=== PATIENT | male | born 1940 | race Caucasian/White ===

== ENCOUNTER 2016-10-07 03:03 | Inpatient (IN) | payer OTHER, MEDICARE ==
[~2016-10-07] VITALS: Ht 172.7 cm; Wt 65.8 kg
[~2016-10-07 03:03] MED LIST: ASPIRIN EC81 M1 PO; CASODEX50 M1 PO; CRESTOR20 M2 PO; FINASTERIDE5 M1 PO; FOLIC ACID1 M1 PO; METOPROLOL SUCC50 M2 PO; MIRALAX17 GM PO; PROTONIX40 M3 PO; RAMIPRIL10 M1 PO
--- NOTE | 2016-10-07 12:08 | RADIOLOGY REPORT ---
EXAMINATION: XR SHOULDER, RIGHT CLINICAL INFORMATION: Right reverse total shoulder arthroplasty COMPARISON: CT from 07/23/2016 TECHNIQUE: Single portable view of the right shoulder. FINDINGS: There is a reverse right total shoulder arthroplasty. The humeral head and glenoid components articulate appropriately. Alignment is as expected with no periprosthetic fracture. Postoperative soft tissue gas is noted. The visualized lung is clear. IMPRESSION: Reverse total right shoulder arthroplasty in expected positioning and alignment.
[2016-10-07 14:00] VITALS: BP 120/62
--- NOTE | 2016-10-07 15:11 | Event Note ---
Event Note Event Note: Rapid response was called on patient. Per RN patient had got out of bed on his own and was in the bathroom at which time she noticed him and went in to help him. While walking in patient appeared to have a syncopal episode and fell but she was able to break his fall. Patient did not hit his head or land on his shoulder per RN. Per patient he remembers getting up to bathroom but does not seem to recall the fall. He states he does not have pain in his shoulder or his head. He has some mild pain in his neck but states the pain is similar to the pain he had in his neck from shingles last week. Denies chest pain or shortness of breath. BP: 120/70's HR: 90's Exam: NAD, A&Ox3, comfortable HEENT: atraumatic, normocephalic. No lesions or abrasions. Neck: Supple. No stepoffs or deformities appreciated but does have some paraspinal tenderness bilaterally. Skin: warm, flush, mildly diaphoretic Chest: NRD, breathing comfortably on 2L NC. RRR. Abd: Soft, NT, ND Ext: Right shoulder dressing c/d/i. Right shoulder immobilizer in place. No obvious upper or lower extremity deformity. NV intact BUE. No calve swelling/ TTP. NV intact BLE. After getting patient back into bed and receiving 500ml IV bolus patient is feeling better without dizziness. EKG without evidence of acute cardiac event. Patient likely had a postoperative vasovagal episode but will r/o other causes. - c collar - neck xrays, trauma series - right shoulder series - cbc, bep, troponins - continue IVF at regular rate - patient to remain in bed until workup complete - monitor vital signs - will discuss with Dr. Nolan
--- NOTE | 2016-10-07 15:25 | NUR ---
LATE ENTRY: PATIENT ARRIVED TO FLOOR AT 1345 FROM PACU. PATIENT ALERT AND ORIENTED, HARD OF HEARING, AT BEDSIDE. PATIENT DENIES ANY PAIN ON HIS RIGHT SHOULDER, SLING IN AND PLACE AND PULSES PRESENT AND REGULAR. PATIENT ASKED TO USE THE BATRHOOM TO VOID. WALKED WITH PATIENT TO BATHROOM. PATIENT AMBULATED INDEPENDENTLY AND DENIED ANY DIZZINESS. WAITED OUTSIDE THE DOOR FOR PATIENT WHEN PATIENT CALLED FOR HELP. IN THE BATRHOOM PATIENT HANGING ON THE RAILING AND SLIDING OFF THE GARBAGE WHICH HE WAS SITTING ON. SAT PAITENT ON THE FLOOR AND RAPID RESPONSE CALLED. PATIENT PALE AND MINIMALLY RESPONSIVE. BP 90/60. IV BOLUS OF 500 MG STARTED. PATIENT BECAME MORE RESPONSIVE AND ABLE TO WALK TO BED WITH HELP. ONCE LAYING IN BED AND S/P 500 MG BOLUS, BP 128/60. PULSE 67, SATING 95% ON ROOM AIR. COLLAR PUT ON PATIENT UNTIL CT SCAN R/O ANY FRACTURES. EKG NEG. PATIENT SINUS RHYTHM. FLUIDS RUNNING AT @ 75 ML/HR.
--- NOTE | 2016-10-07 15:56 | RADIOLOGY REPORT ---
EXAMINATION: X-RAY CERVICAL SPINE AND X-RAY RIGHT SHOULDER CLINICAL INFORMATION: Status post right total shoulder. Recent fall. Evaluate for fracture COMPARISON: X-ray right shoulder dated 10/07/2016 at 11:42 AM TECHNIQUE: 3 views of the right shoulder. AP, lateral and odontoid views of the cervical spine. FINDINGS: RIGHT SHOULDER Dislocation of the recent right humerus shoulder arthroplasty. The humeral articular component is superior to the glenoid in the subacromial space. No periprosthetic acute fracture lines appreciated. Air in the soft tissues compatible with recent postoperative change. Visualized right ribs are intact. Intact right clavicle. Mineralized lungs are unremarkable. X-RAY CERVICAL SPINE There is poor visualization of the odontoid on the lateral or odontoid views. Overall alignment is within normal limits. Visualized vertebral body heights are preserved. Significant decrease in the intervertebral disc space and facet arthropathy noted at multiple levels. Multilevel uncovertebral hypertrophy. IMPRESSION: 1. Dislocated right shoulder arthroplasty. 2. No acute fractures identified. 3. Severe cervical spondylosis. 4. Limited evaluation of the odontoid process. The remaining visualized osseous structures are intact..
[2016-10-07 18:10] VITALS: BP 110/62
--- NOTE | 2016-10-07 18:30 | PN- Orthopedic ---
Surgical Brief Attending Note Brief Attending Note: Per report, patient had a fall earlier today while ambulating independently to the bathroom. He complains of posterior neck tenderness; no right shoulder pain but nerve block still effective. XR of right shoulder show dislocation of the reverse total shoulder prosthesis. Patient was brought down to the operating room and placed on monitors. No medication was administered. The right shoulder was closed reduced with manual traction in the setting of his pre-existing nerve block; the sling was reapplied and xrays were obtained to verify the reduction of the components. He complained of no pain post-reduction. He was able to flex/extend his fingers and reported burning sensation in his fingers. Diminished sensation to light touch over hand. Palpable radial pulse and warm, well-perfused fingers. Mr. Goldman was then taken to the CT scanner for imaging of his cervical spine, then returned to his room (206). He complained of mild nausea and discomfort with the C-collar. Plan: NWB RUE in sling Pain control f/u CT scan results; C-spine reassessment prior to collar removal Out of bed with assistance May eat/drink as tolerated Resume ASA 81mg BID for DVT prophylaxis; SCDs while in bed OT assessment tomorrow Dispo: pending re-evaluation tomorrow.
--- NOTE | 2016-10-07 18:36 | CT SCAN REPORT ---
EXAMINATION: CT CERVICAL SPINE WITHOUT CONTRAST CLINICAL INFORMATION: 76-year-old man with cervical spine tenderness. COMPARISON: Preceding radiographs TECHNIQUE: Helical CT images were obtained through the cervical spine without the use of intravenous contrast. Axial reconstructions were reviewed along with sagittal and coronal MPRs. DLP: 325 mGy-cm FINDINGS: There is no evidence of acute cervical spine fracture. Vertebral bodies are normal in height. Alignment is approximately anatomic. There is degenerative endplate remodeling with marginal osteophyte formation and moderate loss of normal disc space at virtually all levels, with some sparing of C2-C3. Limited assessment of the skull base and lung apices is unremarkable. No pre or paravertebral soft tissue abnormality is identified. IMPRESSION: No evidence of acute cervical spine fracture or traumatic subluxation.
--- NOTE | 2016-10-07 18:56 | NUR ---
PATIENT ARRIVED BACK TO FLOOR AT 181. VITALS STABLE. PATIENT COMPLAINING OF RIGHT SHOULDER BLADE PAIN. SURGICAL PA NOTIFIED. PER SURGICAL PA, IT IS PROBABLY FROM SURGERY SINCE PATIENT DID HAVE A RIGHT SHOULDER ATHROPLASTY. LUNGS CLEAR. PATIENT SATING 100% ON 1L. SURGICAL PA ASKED TO COME UP TO ASSESS PATIENT IN ORDER FOR COLLAR TO COME OFF AND TO ASSESS THE SHOULDER BLADE PAIN. WILL MEDICATE PATIENT. AT BEDSIDE. CALL VIEIRA WITHIN REACH.
[2016-10-07 20:17] LABS: ABSOLUTE BASOPHIL COUNT 0 /CUMM (0.0-0.2); ABSOLUTE EOSINOPHIL COUNT 0 /CUMM (0.0-0.7); ABSOLUTE GRANULOCYTE CT 8.4 /CUMM (1.4-6.5); ABSOLUTE LYMPH COUNT 0.8 /CUMM (1.2-3.4); ABSOLUTE MONOCYTE COUNT 1.2 /CUMM (0.10-0.60); BASOPHIL % 0 % (0.0-2.0); EOSINOPHIL % 0 % (0-5); GRANULOCYTE % 80.3 % (42.2-75.2); HEMATOCRIT 30.3 % (42-52); MEAN CORPUSCULAR HGB 26.4 PG (27.0-31.0); MEAN CORPUSCULAR VOLUME 79.8 FL (80.0-94.0); MEAN PLATELET VOLUME 8.5 FL (7.4-10.4); PLATELET COUNT 259 /CUMM (130-400); RBC DISTRIBUTION WIDTH 14.4 % (11.5-14.5); WHITE BLOOD CELL COUNT 10.4 /CUMM (4.8-10.8)
--- NOTE | 2016-10-07 20:30 | NUR ---
SURGICAL PA CAME TO ASSESS PATIENT AT 1900. CT SHOWED NO CERVICAL FRACTURE, PA FELT COMFORTABLE TO MOVE THE COLLAR OFF. PATIENT ABLE TO MOVE HEAD AND SHOULDERS APPROPIATELY. DENIES ANY PAIN. DAUGHTER AT BEDSIDE. PATIENT ALERT. CALL VIEIRA WITHIN REACH.
--- NOTE | 2016-10-07 21:32 | Operative Report ---
Operative/Inv Procedure Report Surgery Date: 10/07/16 Name of Procedure: Right reverse total shoulder arthroplasty Pre-Operative Diagnosis: Right rotator cuff arthropathy Post-Operative Diagnosis: Right rotator cuff arthropathy Estimated Blood Loss: 150mL Surgeon/Lathing Supervisor: FILI CHAMBERLAIN,GUME Huerta MD, Anesthesia: general endotracheal tube, block Implants: Tornier Aequalis Reverse Total Shoulder System Ascend Flex Stem - size 6 25mm Glenoid Baseplate 36mm Centered Glenoid sphere +0 centered tray +6 poly Drains: None Specimens: Bone - humeral head. Complications: None Condition: Stable Operative/Procedure Note Note: INDICATION FOR PROCEDURE: Chriss Goldman is a 76 year old male who presented with progressively worsening right shoulder pain and dysfunction. He underwent an attempted right rotator cuff repair in 02/2016 by another provider, however the cuff was deemed unrepairable and his arthritis too advanced. He did extensive physical therapy, but was unable to participate in his hobbies and activities of daily living. After discussing the risks, benefits, and alternatives to surgical intervention, he has opted to proceed with right reverse total shoulder arthroplasty for rotator cuff arthropathy. OPERATIVE REPORT: Mr. Goldman arrived at [facility] on 10/07/2016. He was met in the pre- operative area, were his operative extremity was marked and his medical history was reviewed. A nerve block was performed by the anesthesia service with good analgesia. The patient was then taken into the operative room and placed supine on the OR table. A time-out procedure was performed in which the patient, the operative extremity, and the procedure were verified. He was then induced under general anesthesia. The patient was placed in a modified beach chair position; care was taken to pad all bony prominences and support the head in a neutral position. SCDs were applied to both legs for DVT prophylaxis. The right upper extremity was prepped and draped in the usual sterile fashion and pre-operative antibiotics were administered. An incision was made in the anterior shoulder for the standard deltopectoral approach. The cephalic vein was identified and retracted laterally. The interval was divided and the superficial border of the pectoralis major tendon was released. The conjoint tendon was identified and carefully retracted medially. The clavipectoral fascia was carefully opened, and the anterior circumflex arteries were ligated. The patient had a prior biceps tendon rupture, however the groove was opened and taken proximally across the rotator interval to the glenoid. No intact supraspinatus was seen. The subscapularis tendon was intact but very thin. This was tagged with sutures. The subscapular tendon and anterior capsule was retracted medially while externally rotating the arm. The humeral head had extensive wear and peripheral osteophytes. The guide was used to determine the version and angle of the humeral head cut, which was then performed with a saw and completed free hand. Sequential reamers were placed in the canal, followed with sequential broaching up to a size 6. A planar was used to flatten the humeral cut, followed by removal of excess bone and osteophytes with a ronguer. A plate was then used to protect the proximal humerus while the glenoid was prepared. A Facuda retractor was used to retract the humerus for improved glenoid exposure. The remaining labral tissue was romoved aound the rim of the glenoid. The 10 degree guide was aligned with the bottom of the glenoid, and a threaded guide wire inserted. Two glenoid reamers were used to flatten the glenoid without medialization, and remove any remaining cartilage. The wire was then overdrilled with a central drill. The base plate was then inserted and impacted into place. The superior and inferior locking screws were placed but not fully tightened. An 18mm compression screw was placed anteriorly. A posterior compression screw was placed, however did not acheive adequate fixation. A longer screw was inserted, but again no fixation was obtained and the screw was loose in the hole. This was removed. The locking screws were tightening and the anterior screw re-tightened. The 36mm glenosphere was then impacted and screwed into placed. The humerus was then externally rotated for exposure. The cap was removed and the central dish and +6 tray were trialed. This proved to be too tight with poor motion and excessive tensioning of the surrounding tissues. The shoulder was dislocated and +0 tray was trialed with good stability and motion, and no evidence of instability. The humeral trials were then removed and the shoulder copiously irrigated. A 2.0 drill was used to place two holes in the lesser tuberosity, through which #2 Fiberwire suture was passed. These were looped around the stem as it was impacted into place with the tray and poly appropriately positioned. Once the humeral component was fully inserted, the shoulder was again reduced with good stability and motion. The Fiberwire sutures were then passed through the remaining subscapularis/anterior capsule tissue and tied down to the lesser tuberosity using a Vlad-Cristopher stitch. The wound was again copiously irrigated. There was bleeding noted from the cephalic vein, and it was ligated. The deltopectoral interval was closed with #2 Ethibond suture. The incision was closd in layers using 0 vicryl, 2-0 vicryl, and a running subcuticular 3-0 prolene with an escape stitch. The wound was dressed with steri strips, gauze, and ABD pads, and secured with foam tape. A sling was applied to the right arm. The patient was then repositioned supine on the OR table and extubated. He was taken to the recovery room in stable condition.
--- NOTE | 2016-10-07 22:15 | Operative Report ---
Operative/Inv Procedure Report Surgery Date: 10/07/16 Name of Procedure: Closed reduction of right dislocated reverse total shoulder arthroplasty Pre-Operative Diagnosis: Dislocation of right reverse total shoulder arthoplasty Post-Operative Diagnosis: Dislocation of right reverse total shoulder arthoplasty Estimated Blood Loss: 0mL Surgeon/Tax Compliance Representative: GUME PENN MD Anesthesia: none Complications: None Condition: Stable Operative/Procedure Note Note: Indication for procedure: Chriss Goldman is a 76 year old male who underwent right reverse total shoulder arthroplasty earlier today for right rotator cuff arthropathy. Post-operatively, he got up to independently ambulate to the bathroom and collapsed. He did not remember all the events surrounding this time. Xrays of the right shoulder showed dislocation of the right reverse total shoulder prosthesis. The patient was urgently chirag back to the operative room with a plan for closed reduction but possible open reduction to relocate the components. Report: Mr. Goldman was brought to the OR on 10/07/16. He was met in the pre-operative area, where the treatment options to including repeat anesthesia were discussed. The patient was agreeable to intervention. He was brought in the OR and monitors attached. The nerve block thas was administered prior to his reverse total shoulder was in in effect with good analgesia. Using countertraction and traction, the humerus was closed reduced with a palpable noise. The arm and shoulder were then take through a range of motion with good stability and motion. The arm was then returned to the sline. Xrays (AP and axillary) were used to confirm to location of the prosthesis and the reduction. The patient was then removed from the OR in stable condition.
--- NOTE | 2016-10-07 22:47 | PN- Orthopedic ---
Subjective Subjective: Postoperative check Patient is postoperative day #0 status post right total shoulder replacement, complicated by a fall postoperatively resulting in a shoulder dislocation and subsequent return to the OR for relocation under light sedation. Patient was also place a cervical collar postoperatively, which was subsequently cleared. At this time, he is resting and reports no significant complaints. He does admit to some right scapular pain and also some left shoulder pain, which is not the operative site. No significant change versus baseline in the left shoulder. He is tolerating sips of water. No nausea or vomiting. He was able to void at least 400 mL's of urine, while sitting upright at the bedside. Otherwise denies headache, dizziness, chest pain, shortness of breath. Objective Vital Signs and I&Os Vital Signs Date Time Temp Pulse Resp B/P Pulse O2 O2 Flow FiO2 Ox Delivery Rate 10/07 1810 97.5 72 18 110/62 98 Nasal 1.0L Cannula 10/07 1400 98 Nasal 1.0L Cannula 10/07 1400 97.7 81 120/62 98 Nasal 1.0L Cannula Intake & Output 10/07 1600 10/07 0800 10/07 0000 10/06 1600 10/06 0800 10/06 0000 Intake Total 25 Output Total Balance 25 Intake, Oral 25 Patient 145 lb Weight Physical Exam: Gen.: Patient is resting, but easily arousable. HEENT: Head appears atraumatic. Pupils are equal round and reactive to light and accommodation. EOMs are intact. There is point tenderness over the base of the scalp/occipital region. Active and passive range of rotational motion is comfortable to at least 45. Cardiac: Regular Pulmonary: Lungs are clear bilaterally. Extremities: The right upper extremity remains flexed at the elbow and a sling, as previously positioned. His hand is warm and sensation is intact throughout. 2+ radial pulse is noted. Hall Manager strength is 4-5. No significant lower extremity edema or calf tenderness are appreciated. Assessment/Plan Assessment/Plan Patient is a 76-year-old male who is POD #0 status post right total shoulder replacement, complicated by a fall postoperatively resulting in a shoulder dislocation and subsequent return to the OR for relocation under light sedation. He remained stable at this time. Plan: -Okay to advance diet as tolerated. Continue IV fluids until tolerating adequate by mouth. -OT consult in the morning for discharge recommendations. Patient is nonweightbearing with the right upper extremity. We will consider physical therapy consult in the morning if concerns remain for safety during mobilization. -If patient complains of neck discomfort, we will replace the cervical collar. Okay to use soft collar if more comfortable. -Continue morphine for pain control or Percocet when tolerating a diet. -81 mg twice a day for DVT prophylaxis plus Alps. -Ancef 24 hours for hepatic prophylaxis. -Home meds have been resumed, including beta randell. -Follow-up CBC and lytes in the morning. Core Measures/Miscellaneous Venous Thromboembolism VTE Risk Factors: Age > 40, Surgery VTE Contraindications: No Contraindications VTE Diagnosis: No Beta Randell Is Beta Randell a Home Med? Yes If Yes, Was This Ordered Today? Yes Antibiotics Is Patient on Antibiotics? Yes If Yes: prophylaxis
--- NOTE | 2016-10-07 23:37 | Event Note ---
See Addendum Event Note Event Note: CT scan of the cervical spine was performed, which was negative for fracture or subluxation. The c-collar was removed. Patient was still noted to have some occipital tenderness, but both active and passive range of motion were found to be pain free. Patient reported improvement in overall discomfort with removal of the collar. I discussed with Dr. Nolan, who agreed that the collar can be discontinued. I discussed with the patient that any complaints of pain with spontaneous movement should be reported, at which time ligamentous injury should be considered and a collar (Possibly soft) could be replaced. Patient is in agreement.
[2016-10-07 23:41] VITALS: BP 110/68
[2016-10-08 07:33] VITALS: BP 121/66
[2016-10-08 07:50] LABS: ABSOLUTE BASOPHIL COUNT 0 /CUMM (0.0-0.2); ABSOLUTE EOSINOPHIL COUNT 0 /CUMM (0.0-0.7); ABSOLUTE GRANULOCYTE CT 5.8 /CUMM (1.4-6.5); ABSOLUTE LYMPH COUNT 1.3 /CUMM (1.2-3.4); ABSOLUTE MONOCYTE COUNT 1.1 /CUMM (0.10-0.60); BASOPHIL % 0.2 % (0.0-2.0); EOSINOPHIL % 0 % (0-5); GRANULOCYTE % 70.9 % (42.2-75.2); HEMATOCRIT 26.3 % (42-52); MEAN CORPUSCULAR HGB 26.6 PG (27.0-31.0); MEAN CORPUSCULAR HGB CONC 33.3 G/DL (33.0-37.0); MEAN CORPUSCULAR VOLUME 79.9 FL (80.0-94.0); MEAN PLATELET VOLUME 8.5 FL (7.4-10.4); PLATELET COUNT 217 /CUMM (130-400); RBC DISTRIBUTION WIDTH 14.7 % (11.5-14.5); RED BLOOD CELL CT 3.29 /CUMM (4.70-6.10); WHITE BLOOD CELL COUNT 8.2 /CUMM (4.8-10.8)
--- NOTE | 2016-10-08 08:29 | RADIOLOGY REPORT ---
EXAMINATION: XR SHOULDER, RIGHT CLINICAL INFORMATION: Right shoulder dislocation. COMPARISON: Right shoulder done on 10/07/2016. TECHNIQUE: Two views of the right shoulder. FINDINGS: Previously dislocated stem, humeral component of the right shoulder total arthroplasty currently shows satisfactory realignment. The hardware appears intact. Multiple air pockets are identified within the adjacent soft tissues few of them shows air-fluid level consistent with recent intervention. IMPRESSION: Postsurgical changes of total right shoulder arthroplasty showing satisfactory alignment of the hardware, consistent with satisfactory reduction of previously documented dislocation.
--- NOTE | 2016-10-08 08:46 | PN- Orthopedic ---
See Addendum Subjective Subjective: Patient states that he was unable to sleep last night due to discomfort in his non-operative shoulder. He states that he has a history of left shoulder pain and feels that it has been exacerbated, he states that he was laying on it overnight. He denies chest pain, shortness of breath and difficulty breathing. He denies nausea and vomitting. He has yet to ambulate, he fell one day ago and is reluctant to stand today. Objective Vital Signs and I&Os Vital Signs Date Time Temp Pulse Resp B/P Pulse O2 O2 Flow FiO2 Ox Delivery Rate 10/08 0733 98.1 62 20 121/66 96 Room Air 10/07 2341 98.0 63 20 110/68 98 Nasal 1.0L Cannula 10/07 1810 97.5 72 18 110/62 98 Nasal 1.0L Cannula 10/07 1400 98 Nasal 1.0L Cannula 10/07 1400 97.7 81 120/62 98 Nasal 1.0L Cannula Intake & Output 10/08 1600 10/08 0800 10/08 0000 10/07 1600 10/07 0800 10/07 0000 Intake Total 600 200 25 Output Total 350 450 Balance 250 -250 25 Intake, IV 600 Intake, Oral 200 25 Output, Urine 350 450 Patient 145 lb Weight Physical Exam: General: Alert and oriented x3, no acute distress Cardiac: RRR, s1s2 Pulmonary: CTA bilaterally Abdomen: Non-tender, non-distended Extremities: MOves all extremities, distal sensation intact. Bilateral upper extremities skin warm and well perfused. Motor 5/5 in bilateral hand balance and hairspring assembler. radial and ulnar pulses palpable bilaterally. Unable to assess ROM, to left shoulder, limited by pain. Arm pressed into side at all times, no limitations distally from elbow to hand. Surgical site: Right shoulder, dressing dry and intact. Assessment/Plan Assessment/Plan This is a 76 year old male, POD 1, s/p Right total shoulder replacement. Rapid response 10/07 with dislocation of right shoulder, return to or for closed reduction. Now with c/o of worsening left shoudler pain with limited ROM due to pain. -XRAY left shoulder -D/C IV fluids -Continue current pain regimen -Advance as tolerated -OOB with assist only, PT ordered -Will discuss with Dr. Nolan Core Measures/Miscellaneous Venous Thromboembolism VTE Risk Factors: Age > 40, Surgery VTE Contraindications: No Contraindications VTE Diagnosis: No Beta Randell Is Beta Randell a Home Med? Yes If Yes, Was This Ordered Today? Yes Antibiotics Is Patient on Antibiotics? Yes If Yes: prophylaxis
--- NOTE | 2016-10-08 09:15 | NUR ---
nursing note: pt c/o nausea; zofran given per prn order, wilmar galvin made aware, cont to monitor
[2016-10-08 11:30] VITALS: BP 126/70
--- NOTE | 2016-10-08 13:23 | NUR ---
NURSING NOTE: ONE TIME OF TORADOL ORDERED BY SURG PA. PT SLEEPING AT THIS TIME, AT BEDSIDE, STATES "LET HIM SLEEP" CONT TO MONITOR.
[2016-10-08 14:07] VITALS: BP 102/48; BP 92/84
--- NOTE | 2016-10-08 17:23 | RADIOLOGY REPORT ---
EXAMINATION: XR SHOULDER, LEFT CLINICAL INFORMATION: Pain with decreased range of motion. COMPARISON: None TECHNIQUE: Three views of the left shoulder. FINDINGS: No fracture or dislocation. The left humeral head articulates appropriately with the glenoid. Mild degenerative changes are seen with small osteophytes present. Mild degenerative changes of the acromioclavicular joint. The visualized lung is clear. IMPRESSION: Mild degenerative changes.
--- NOTE | 2016-10-08 21:27 | NUR ---
ALERT AND ORIENTED X 3. VITAL SIGNS STABLE. DENIES CHEST PAIN. + PULSES SLING TO R SHOULDER. MEDICATION GIVEN FOR PAIN WILL CONTINUE TO MONITOR
[2016-10-08 22:07] VITALS: BP 104/50
[2016-10-09] VITALS (7 sets, daily range): BP systolic 84–110; BP diastolic 48–60
--- NOTE | 2016-10-09 07:37 | PN- Orthopedic ---
See Addendum Subjective Subjective: 76-year-old male postop day 2 status post right reverse total shoulder arthroplasty and subsequent traumatic dislocation on postoperative day 0 with closed reduction. Patient had a fall postop day 0 resulting in shoulder dislocation which was reduced in the OR. He also had neck pain and had a cervical spine clearance with CT scan and exam. He complains of no neck pain at this time no numbness or weakness in extremities. He has mild to moderate right shoulder pain that is controlled with pain medication. He had no acute events overnight. He states he slept well and is feeling much better today than he did yesterday. He is awaiting clearance with physical therapy. He denies any fever or flulike illness. Objective Vital Signs and I&Os Vital Signs Date Time Temp Pulse Resp B/P Pulse O2 O2 Flow FiO2 Ox Delivery Rate 10/09 0624 97.9 62 20 108/58 96 Room Air 10/08 2207 98.6 63 20 104/50 100 10/08 1407 98.4 62 20 102/48 100 Room Air 10/08 1130 68 126/70 10/08 1013 67 124/68 10/08 1011 67 124/68 10/08 0733 98.1 62 20 121/66 96 Room Air Intake & Output 10/09 0800 10/09 0000 10/08 1600 10/08 0800 10/08 0000 10/07 1600 Intake Total 150 350 850 600 200 25 Output Total 500 350 350 450 Balance 150 -150 500 250 -250 25 Intake, IV 150 600 Intake, Oral 150 350 700 200 25 Number 0 Bowel Movements Output, Urine 500 350 350 450 Patient 145 lb Weight Physical Exam: Well-developed well-nourished no apparent distress. HEENT: Atraumatic, extraocular motion intact Neck: Supple, no lymphadenopathy Back: Nontender Respiratory: No respiratory distress Right upper extremity, dressing with small amount of bloody drainage. Incision is intact, Steri-Strips intact. Moderate swelling to the anterior shoulder with ecchymosis. No erythema. Shoulder clinically is reduced. Sling is applied. Neurovascularly intact right upper extremity. Neuro: Alert and oriented x3 Psych: Mood affect normal, normal memory normal judgment. Skin: Warm and dry, no rash on exposed skin Results Last 48 Hours of Labs: Laboratory Tests 10/08 10/07 0626 1830 Chemistry Sodium (137 - 145 mmol/L) 131 L 134 L Potassium (3.5 - 5.1 mmol/L) 4.6 4.8 Chloride (98 - 107 mmol/L) 96 L 96 L Carbon Dioxide (22 - 30 mmol/L) 28 24 Anion Gap (5 - 16) 7 14 BUN (9 - 20 mg/dL) 20 21 H Creatinine (0.7 - 1.2 mg/dL) 0.8 0.8 Estimated GFR (>60 ml/min) > 60 > 60 BUN/Creatinine Ratio (7 - 25 %) 25.0 26.3 H Troponin I (<0.11 ng/ml) < 0.01 Hematology CBC w Diff NO MAN DIFF REQ NO MAN DIFF REQ WBC (4.8 - 10.8 /CUMM) 8.2 10.4 RBC (4.70 - 6.10 /CUMM) 3.29 L 3.80 L Hgb (14.0 - 18.0 G/DL) 8.7 L 10.0 L Hct (42 - 52 %) 26.3 L 30.3 L MCV (80.0 - 94.0 FL) 79.9 L 79.8 L MCH (27.0 - 31.0 PG) 26.6 L 26.4 L RDW (11.5 - 14.5 %) 14.7 H 14.4 Plt Count (130 - 400 /CUMM) 217 259 MPV (7.4 - 10.4 FL) 8.5 8.5 Gran % (42.2 - 75.2 %) 70.9 80.3 H Lymphocytes % (20.5 - 51.1 %) 15.9 L 7.7 L Monocytes % (1.7 - 9.3 %) 13.0 H 12.0 H Eosinophils % (0 - 5 %) 0 0 Basophils % (0.0 - 2.0 %) 0.2 0 L Absolute Granulocytes (1.4 - 6.5 /CUMM) 5.8 8.4 H Absolute Lymphocytes (1.2 - 3.4 /CUMM) 1.3 0.8 L Absolute Monocytes (0.10 - 0.60 /CUMM) 1.1 H 1.2 H Absolute Eosinophils (0.0 - 0.7 /CUMM) 0 0 Absolute Basophils (0.0 - 0.2 /CUMM) 0 0 PUBS MCHC (33.0 - 37.0 G/DL) 33.3 33.0 Assessment/Plan Assessment/Plan 76-year-old male postop day 2 status post right reverse total shoulder arthroplasty and subsequent traumatic dislocation on postoperative day 0 with closed reduction. -Orthopedically he is doing well, continue sling -Out of bed with physical therapy nonweightbearing right upper extremity to remain in sling -Daily dressing changes, dressing change today by myself -Aspirin 81 mg twice a day for DVT prophylaxis -Pain medication as needed -Case management consult for possible home services and home safety eval Acute blood loss anemia- follow labs this morning, patient asymptomatic. Hyponatremia-sodium recheck this morning, regular diet, IV fluids DC'd yesterday Cervical strain -Neck pain after fall resolved -Possible discharge this afternoon after evaluation with physical therapy and results of labs reviewed. Core Measures/Miscellaneous Venous Thromboembolism VTE Risk Factors: Age > 40, Surgery VTE Contraindications: No Contraindications VTE Diagnosis: No Beta Randell Is Beta Randell a Home Med? Yes If Yes, Was This Ordered Today? Yes Antibiotics Is Patient on Antibiotics? Yes If Yes: prophylaxis
--- NOTE | 2016-10-09 07:41 | Patient Discharge Instructions ---
Discharge Instructions General Discharge Information You were seen/treated for: Right shoulder osteoarthritis You had these procedures: Right shoulder reverse total shoulder arthroplasty Watch for these problems: Redness, swelling, pain, fever or discharge from the wound. Call Surgeon to remove: Stitches (in 10 days) Do not soak the wound: Yes No bath, but you may shower: Yes Other wound care: Dressing changes as needed if the dressing is bloody or wet. Use gauze and a dry dressing Special Instructions: Stay in sling at all times you may move the elbow as much as you feel comfortable. Keep your right hand between your nose and your toes Diet Continue normal diet: Yes Activity Full Activity/No Limits: No Activity Self Limited: Yes Pounds, do NOT lift more than: 0 (right arm) Activity Limited to: No weight bearing (right upper extremity) Additional ACTIVITY Info: Stain sling at all times except when bathing Acute Coronary Syndrome Inclusion Criteria At DC or during hospital stay patient has or had the following: ACS DIAGNOSIS No Discharge Core Measures Meds if any: Prescribed or Continued at Discharge Aspirin Yes Beta-Randell Yes Meds if any: NOT Prescribed or Continued at Discharge Congestive Heart Failure Inclusion Criteria At DC or during hospital stay patient has or had the following: CHF DIAGNOSIS No Discharge Core Measures Meds if any: Prescribed or Continued at Discharge Meds if any: NOT Prescribed or Continued at Discharge Cerebrovascular accident Inclusion Criteria At DC or during hospital stay patient has or had the following: CVA/TIA Diagnosis No Discharge Core Measures Meds if any: Prescribed or Continued at Discharge Meds if any: NOT Prescribed or Continued at Discharge Venous thromboembolism Inclusion Criteria VTE Diagnosis No VTE Type NONE VTE Confirmed by (Test) NONE Discharge Core Measures - Per Current guidelines, there needs to be overlap - treatment for the first 5 days of Warfarin therapy. - If discharged on Warfarin prior to 5 days of - overlap therapy, the patient will need to be - assessed for post discharge needs including - *Post discharge parental anticoagulation - *Warfarin and/or parental anticoagulation education - *Follow up date to check INR post discharge At least 5 days overlap therapy as Inpatient No Meds if any: Prescribed or Continued at Discharge Note: Overlap Therapy is Warfarin and Anticoagulant Meds if any: NOT Prescribed or Continued at Discharge
--- NOTE | 2016-10-09 07:58 | Surgical Discharge Summary ---
Visit Information Visit Dates Admission Date: 10/07/16 Discharge Date: 10/10/16 History of Present Illness Chief Complaint: Right shoulder pain secondary to rotator cuff arthropathy Medical History Blood Transfusion Hx: No Cardiovascular: CAD, hypertension Renal: KIDNEY STONES Musculoskeletal: osteoarthritis Cancer(s): PROSTATE CANCER History of MRSA: No History of VRE: No History of CDIFF: No Isolation History: Standard Influenza Vaccine: 06/11/16 Surgical History Pertinent Surgical History: STENT TONSILITIS Psychosocial History Where Do You Live? Home Who Do You Live With? Spouse What is Your Primary Language? Azeri Review of Systems: see hpi Physical Exam: See H&P Upon discharge right shoulder dressing was clean and dry, moderate swelling to the right shoulder, neurovascularly intact. Hospital Course Course Attending Physician: GUME NOLAN MD Primary Care Physician: RYLEE CHAMBERLAIN,[facility] Course: Patient was admitted on 10/07 2016 for a reverse right total shoulder arthroplasty. The procedure went without complications the patient was transferred to the floor. On postoperative day 0, patient got up without assistance to go to the bathroom, had a vasovagal episode, and fell to the ground. He dislocated the right shoulder in the fall. He had an EKG and labs which show mild hyponatremia and acute blood loss anemia. He also had a CT scan of his neck after being placed in a cervical spine collar because he had neck pain after the fall. His C-spine was cleared shortly after. On POD0, he was brought back to the OR and underwent closed reduction of the right shoulder. He did not require additional sedation as his perioperative nerve block was still in effect. On postop day 2 patient felt significantly better. His pain is controlled he is remained in a sling, he was evaluated by physical therapy and cleared. He initially had orthostatic hypotension, but this improved with time. He received 24hrs of prophylactic IV antibiotics follow surgery and aspirin 81mg BID for DVT prophylaxis. He'll be discharged home with VNA services to follow up in approximately 10 days ' time with orthopedist Dr. Nolan Complications: Postoperative fall with shoulder dislocation and subsequent closed reduction in the operating room postop day 0. Hyponatremia Acute blood loss anemia Allergies: Uncoded Allergies: LEAFY GREENS (GI UPSET 09/29/16) Significant Procedures: Right reverse total shoulder arthroplasty. Subsequent closed reduction in the operating room of the right shoulder. Disposition Summary Disposition Principal Diagnosis: Right shoulder osteoarthritis status post right reverse total shoulder arthroplasty Additional Diagnosis: Hyponatremia, acute blood loss anemia, fall, cervical strain Discharge Disposition: home health services Discharge Instructions General Discharge Information Code Status: Full Code Patient's Diet: Regular Patient's Activity: Self-limiting, Ultrasling at all time to right upper extremity, nonweightbearing right upper extremity Follow-Up Instructions/Appts: Follow-up with Dr. Nolan 10 days for wound check and postoperative visit. Stay in ultrasling at all times except when bathing Dressing changes as needed if there went or bloody Do not submerge the wound, you may shower, change the dressings when they are wet. Pain medication as needed Aspirin 81 mg twice a day for DVT prophylaxis [id number]-[id number] stool softeners, Colace, senna, MiraLAX as needed for constipation due to pain medication Watch for any signs of infection such as redness, excessive discharge from the wound, worsening pain, fever greater than 101, worsening swelling of the arm or flulike illness. Call orthopedist with any concerns. Medications at Discharge Discharge Medications: Stop taking the following medications: Aspirin (Ecotrin*) 81 MG TABLET.DR ORAL DAILY Continue taking these medications: Bicalutamide (Casodex) 50 MG TABLET 1 Tablet ORAL DAILY Comments: NOT GIVEN WHILE HOSPITALIZED Finasteride (Finasteride) 5 MG TABLET 1 Tablet ORAL DAILY Comments: LAST DOSE GIVEN 10/10/16 AT 10:00 AM Folic Acid (Folic Acid) 1 MG TABLET 1 Tablet ORAL DAILY Comments: NOT GIVEN WHILE HOSPITALIZED Metoprolol Succinate (Metoprolol Succinate) 50 MG TAB.ER.24H 1 Tablet ORAL DAILY Comments: LAST DOSE GIVEN 10/08/16 AT 10:00 AM Pantoprazole Sodium (Protonix) 40 MG TABLET.DR 1 Tablet ORAL DAILY Comments: LAST DSOE GIVEN 10/10/16 @ 10:00 AM VIA I.V Ramipril (Ramipril) 10 MG CAPSULE 1 Capsule ORAL DAILY Comments: NOT GIVEN WHILE HOSPITALIZED Rosuvastatin Calcium (Crestor) 20 MG TABLET 1 Tablet ORAL DAILY Comments: LIPITOR GIVEN SUBSTITUTE, LAST DOSE 10/09/16 AT 5:00 PM Start taking the following new medications: Aspirin (Aspirin*) 81 MG TAB.CHEW 81 Milligram ORAL TWICE DAILY Qty = 60 No Refills Comments: LAST DOSE GIVEN 10/10/16 AT 10:00 AM Docusate Sodium (Docusate Sodium) 100 MG CAPSULE 100 Milligram ORAL TWICE DAILY as needed for constipation Qty = 30 No Refills Comments: LAST DOSE GIVEN 10/10/16 AT 10:00 AM Oxycodone HCl/Acetaminophen (Percocet 5-325 MG Tablet) 5 MG-325 MG TABLET 1-2 Tablet ORAL EVERY 4 HOURS NEEDED as needed for PAIN SCALE 1-3 (MILD) Qty = 36 No Refills Comments: LAST DOSE GIVEN 10/10/16 AT 6:00 AM Attending MD Review Statement Attending Statement Attending MD Statement: examined this patient, agreed w/resident/PA/[employer]ILD[employer] DES[employer] SPECIALIST, discussed with family, amended to note
[2016-10-09] MEDS ORDERED: PERCOCET 5-3251 EACH PO (08:02)
[2016-10-09] MEDS ORDERED: ASPIRIN81 M4 PO (08:02)
[2016-10-09] MEDS ORDERED: DOCUSATE SODIU100 M3 PO (08:02)
[2016-10-09 08:39] LABS: ABSOLUTE BASOPHIL COUNT 0 /CUMM (0.0-0.2); ABSOLUTE EOSINOPHIL COUNT 0 /CUMM (0.0-0.7); ABSOLUTE GRANULOCYTE CT 5.7 /CUMM (1.4-6.5); ABSOLUTE LYMPH COUNT 2.1 /CUMM (1.2-3.4); BASOPHIL % 0.3 % (0.0-2.0); EOSINOPHIL % 0.6 % (0-5); GRANULOCYTE % 63.9 % (42.2-75.2); HEMATOCRIT 25.4 % (42-52); MEAN CORPUSCULAR HGB 26.5 PG (27.0-31.0); MEAN CORPUSCULAR HGB CONC 32.9 G/DL (33.0-37.0); MEAN CORPUSCULAR VOLUME 80.5 FL (80.0-94.0); MEAN PLATELET VOLUME 8.7 FL (7.4-10.4); PLATELET COUNT 225 /CUMM (130-400); RBC DISTRIBUTION WIDTH 14.9 % (11.5-14.5); RED BLOOD CELL CT 3.15 /CUMM (4.70-6.10); WHITE BLOOD CELL COUNT 8.9 /CUMM (4.8-10.8)
--- NOTE | 2016-10-09 10:40 | NUR ---
NURSING NOTE: PT SITTING IN CHAIR. C/O "A LITTLE LIGHTHEADED" BP 84/48. HR 60, PT ASSISTED BACK TO BED, BED ALARM IN PLACE AND WORKING, BP LYING WAS 102/60, HR 64. PT STATES "I FEEL BETTER" LISA LOPEZ 416 MADE AWARE, CONT TO MONITOR. NO FURTEHR ORDERS AT THIS TIME.
--- NOTE | 2016-10-09 11:00 | Cons- Medical ---
General Information and HPI Consulting Request Date of Consult: 10/09/16 Requested By: GUME PENN MD Reason for Consult: Hypotension Anemia Hyponatremia PRABHJOT Source of Information: patient, family, old records Exam Limitations: clinical condition History of Present Illness: Mr Goldman is a 76-year-old gentleman with a PMH of CAD s/p stent placement 2 ( 2010), stage I diastolic dysfunction (echocardiogram 2014, LVEF>65%), BPH, prostate CA s/p radiation therapy completed last year, diverticulosis, right rotator cuff arthropathy with unsuccessful prior attempts of repair (02/2016) and admitted on 10/07/2016 when he underwent reverse total shoulder arthroplasty. Unfortunately on postop day 0 the patient had a syncopal episode while urinating resulting in a fall to the ground. Cervical CT: Dislocation of the right shoulder arthroplasty. No acute fractures were identified. Severe cervical spondylosis. Limited evaluation of the odontoid process. The patient was taken back to the OR and underwent a closed reduction of right dislocated reverse total shoulder arthroplasty. At this time the patient reports mild nausea, mild abdominal bloating, chills. He denies any dizziness, blurred vision, headache, difficulty breathing, chest pain, palpitations, numbness or severe pain in his upper extremity. Allergies/Medications Allergies: Uncoded Allergies: LEAFY GREENS (GI UPSET 09/29/16) Home Med List: Aspirin (Ecotrin*) 81 MG TABLET.DR 1 TAB PO DAILY PROPHO (Reported) Aspirin (Aspirin*) 81 MG TAB.CHEW 81 MG PO BID dvt Bicalutamide (Casodex) 50 MG TABLET 1 TAB PO DAILY CANCER (Reported) Docusate Sodium 100 MG CAPSULE 100 MG PO BID PRN constipation Finasteride 5 MG TABLET 1 TAB PO DAILY PROSTATE (Reported) Folic Acid 1 MG TABLET 1 TAB PO DAILY PROPHO (Reported) Metoprolol Succinate 50 MG TAB.ER.24H 1 TAB PO DAILY HTN (Reported) Oxycodone HCl/Acetaminophen (Percocet 5-325 MG Tablet) 5 MG-325 MG TABLET 1-2 TAB PO Q4P PRN PAIN SCALE 1-3 (MILD) Pantoprazole Sodium (Protonix) 40 MG TABLET.DR 1 TAB PO DAILY GERD (Reported) Ramipril 10 MG CAPSULE 1 CAP PO DAILY HTN (Reported) Rosuvastatin Calcium (Crestor) 20 MG TABLET 1 TAB PO DAILY CHOLESTEROL ( Reported) Current Medications: Current Medications Sig/Trinh Start time Last Medication Dose Route Stop Time Status Admin Aspirin 81 MG BID 10/08 1000 AC 10/09 PO 1042 Atorvastatin Calcium 80 MG 1700 10/07 1700 AC 10/08 PO 1748 Docusate Sodium 100 MG DAILY 10/08 1000 AC 10/09 PO 1043 Finasteride 5 MG DAILY 10/08 1000 AC 10/09 PO 1044 Ketorolac 15 MG Q8P PRN 10/08 1715 DC Tromethamine IV Ketorolac 30 MG .STK-MED ONE 10/08 1336 DC Tromethamine IM 10/08 1337 Ketorolac 15 MG ONCE ONE 10/08 1315 DC 10/08 Tromethamine IV 10/08 1316 1350 Lisinopril 40 MG DAILY 10/08 1000 AC 10/08 PO 1011 Melatonin 5 MG AT BEDTIME PRN 10/08 0015 AC 10/08 PO 0025 Metoprolol Succinate 50 MG DAILY 10/08 1000 AC 10/08 PO 1013 Morphine Sulfate 2 MG Q3P PRN 10/07 1345 DC 10/08 IV 0736 Ondansetron HCl 4 MG Q8P PRN 10/07 1345 AC 10/08 IV 0914 Oxycodone/ 1 TAB Q4P PRN 10/07 1345 AC 10/09 Acetaminophen PO 0632 Oxycodone/ 2 TAB Q4P PRN 10/07 1345 AC Acetaminophen PO Pantoprazole Sodium 40 MG DAILY 10/08 1000 AC 10/09 IV 1059 Polyethylene Glycol 17 GM DAILY 10/09 1000 AC 10/09 PO 1044 Sodium Chloride 1,000 ML BOLUS ONE 10/09 1100 DC 10/09 IV 10/09 1159 1122 Review of Systems Review of Systems Constitutional: Reports: see HPI. EENTM: Reports: no symptoms. Cardiovascular: Reports: no symptoms. Respiratory: Reports: no symptoms. GI: Reports: see HPI. Genitourinary: Reports: no symptoms. Musculoskeletal: Reports: see HPI. Neurological/Psychological: Reports: no symptoms. Past History Medical History Blood Transfusion Hx: No Cardiovascular: CAD, hypertension Renal: KIDNEY STONES Musculoskeletal: osteoarthritis Cancer(s): PROSTATE CANCER Surgical History Surgical History: STENT TONSILITIS Psychosocial History Where Do You Live? Home Smoking Status: Former Smoker Functional Ability ADLs Independent: dressing, eating, toileting, bathing. Ambulation: independent IADLs Independent: shopping, housework, finances, food prep, telephone, transportation , medication admin. Exam & Diagnostic Data Last 24 Hrs of Vital Signs/I&O Vital Signs Date Time Temp Pulse Resp B/P Pulse O2 O2 Flow FiO2 Ox Delivery Rate 10/09 1250 97.9 62 18 110/58 100 Room Air 10/09 1040 64 102/60 10/09 1035 61 84/48 10/09 0811 64 108/64 10/09 0811 62 108/60 10/09 0624 97.9 62 20 108/58 96 Room Air 10/08 2207 98.6 63 20 104/50 100 10/08 1407 98.4 62 20 102/48 100 Room Air Intake & Output 10/09 1600 10/09 0800 10/09 0000 Intake Total 1000 150 350 Output Total 600 500 Balance 400 150 -150 Intake, IV 1000 Intake, Oral 150 350 Output, Urine 600 500 Physical Exam General Appearance: alert, comfortable, patient is easily arousable, slightly lethargic Head: atraumatic, normal appearance, conjunctiva are normal in color Eyes: Bilateral: normal appearance, EOMI. Ears, Nose, Throat: moist mucus membranes Respiratory: no respiratory distress, quiet respiration, lungs clear Cardiovascular: regular rate/rhythm, late systolic murmur, most prominent in the tricuspid region Gastrointestinal: normal bowel sounds, soft, non-tender, very mild abdominal distention Extremities: normal capillary refill, normal range of motion, no edema Last 24 Hrs of Labs/Moustapha: Laboratory Tests 10/09/16 0635: Anion Gap 9, Estimated GFR 59 L, BUN/Creatinine Ratio 30.0 H, Cortisol AM Sample Pending, CBC w Diff NO MAN DIFF REQ, RBC 3.15 L, MCV 80.5, MCH 26.5 L, RDW 14.9 H, MPV 8.7, Gran % 63.9, Lymphocytes % 23.7, Monocytes % 11.5 H, Eosinophils % 0.6, Basophils % 0.3, Absolute Granulocytes 5.7, Absolute Lymphocytes 2.1, Absolute Monocytes 1.0 H, Absolute Eosinophils 0, Absolute Basophils 0, PUBS MCHC 32.9 L Diagnostic Data EKG Results Sinus rhythm, HR 66 bpm, NM interval 172. QTC 449 Assessment/Plan Assessment/Plan 76-year-old gentleman with a PMH of CAD s/p stent placement 2 (2010), stage I diastolic dysfunction (echocardiogram 2014, LVEF>65%), BPH, prostate CA s/p radiation therapy completed last year, diverticulosis, right rotator cuff arthropathy with unsuccessful prior attempts of repair (02/2016) and admitted on 10/07/2016 when he underwent reverse total shoulder arthroplasty. Unfortunately on postop day 0 the patient had a syncopal episode while urinating resulting in a fall to the ground. VS admission: 120/62, HR 81, RR 18, SPO2 98% on RA, T 97.7 Pertinent labs on admission: WBC 10.4, H&H 10.0/30.3, platelets 259, sodium 134, potassium 4.8, chloride 96, bicarbonate 24, anion gap 14, BUN/CR 21/0.8, troponin<0.01 Problem list: 1. Reverse total shoulder arthroplasty 2. Syncopal episode 3. Hypotension 4. Orthostatic hypotension 5. Anemia 6. Hyponatremia 7. Acute kidney injury Recommendations: 1. Reverse total shoulder arthroplasty * Stable from surgical stand point 2. Syncopal episode * Positive orthostatics. We'll repeat orthostatics s/p fluid resuscitation * Continue fall precautions * PT evaluation once stable from surgical standpoint 3. Hypotension with positive orthostatics * Likely multifactorial: Anesthetic + analgesic side effects * Patient did receive 1 dose of metoprolol succinate 50 mg yesterday. Would recommend holding this medication and starting off at half dose * Patient reports baseline blood pressure of 120s/70s 4. Iron deficiency Anemia * Serum iron 27L, TIBC 324, percent saturation 8L * Follow stool guaiac. Noticeable rising BUN that could be attribute it to a BI bleed (less likely) * If worsening pain/drop in H&H, consider CT of chest/right upper extremity to assess for hematoma * Recommend starting the patient on ferrous sulfate 325 mg BID 5. Hyponatremia * Follow-up urine lytes, assess FeNa despite fluid resuscitation * The patient is immune suppressed in setting of previous radiation therapy. Follow-up a.m. cortisol to assess for any evidence of adrenal insufficiency. If low, stress dose with Solu-Cortef * Normal saline for fluid resuscitation 6. Acute kidney injury * Patient was able to self void over 600 mL of urine with a post void bladder scan showing low residuals of 50 mL. Obstructive uropathy in the setting of recent anesthetic can thus be ruled out * In the setting of hypotension, Likely a prerenal etiology is likely. Repeat renal function in the morning after hydration * Monitor for fluid overload: Echocardiogram 2014 showed stage I diastolic dysfunction with LVEF> 65% 7. Constipation * Bowel regimen with MiraLAX, senna and Colace Problem List: 1. Status post total shoulder arthroplasty 2. Episode of syncope 3. Hypotension 4. Orthostatic hypotension 5. Anemia 6. Hyponatremia 7. PRABHJOT (acute kidney injury) Consult Acknowledgment - Thank you for your consult request.
--- NOTE | 2016-10-09 13:06 | NUR ---
NURSING NOTE: BP RECHECK S/P 1000ML NS BOLUS; 110/58, HR 62, TEMP 97.9, RR 18, ROOM AIR 100%. PT AMBULATED TO BR WITH CANE AND SUPERVISION DENIES LIGHTHEADEDNESS. PT VOIDED 600ML CLEAR YELLOW URINE, BLADDER SCAN AFTER FOR 58ML/62ML/75ML. WILL SEND URINE SAMPLES PER MD ORDER. AL MOD #188 MADE AWARE OF ABOVE. CONT TO MONITOR.
--- NOTE | 2016-10-09 13:13 | PN- Att Addend ---
Attending Addendum Attending Brief Note Asked to see pleasant 76-year-old white male who had right shoulder surgery and did well after that he had a mechanical fall and had a dislocation which was treated. Since then patient has been a little hypotensive with no signs of any shock. Patient is alert and oriented. His little hypernatremic and also his hemoglobin and hematocrit dropped without any obvious signs of bleeding. We'll keep close observation monitor his H&H and electrolytes, gentle hydration. And his H&H keeps dropping need to workup to find if there is any BLEEDING, which echo sized to us for local block 24 TOTALS 10/09 0000 10/08 0000 Intake Total 1800 225 Output Total 1200 450 Balance 600 -225 Intake, IV 750 Intake, Oral 1050 225 Number 0 Bowel Movements Output, Urine 1200 450 Patient 145 lb Weight Current Medications Sig/Trinh Start time Last Medication Dose Route Stop Time Status Admin Aspirin 81 MG BID 10/08 1000 AC 10/09 PO 1042 Atorvastatin Calcium 80 MG 1700 10/07 1700 AC 10/08 PO 1748 Docusate Sodium 100 MG DAILY 10/08 1000 AC 10/09 PO 1043 Finasteride 5 MG DAILY 10/08 1000 AC 10/09 PO 1044 Ketorolac 15 MG Q8P PRN 10/08 1715 DC Tromethamine IV Ketorolac 30 MG .STK-MED ONE 10/08 1336 DC Tromethamine IM 10/08 1337 Ketorolac 15 MG ONCE ONE 10/08 1315 DC 10/08 Tromethamine IV 10/08 1316 1350 Lisinopril 40 MG DAILY 10/08 1000 AC 10/08 PO 1011 Melatonin 5 MG AT BEDTIME PRN 10/08 0015 AC 10/08 PO 0025 Metoprolol Succinate 50 MG DAILY 10/08 1000 AC 10/08 PO 1013 Morphine Sulfate 2 MG Q3P PRN 10/07 1345 DC 10/08 IV 0736 Ondansetron HCl 4 MG Q8P PRN 10/07 1345 AC 10/08 IV 0914 Oxycodone/ 1 TAB Q4P PRN 10/07 1345 AC 10/09 Acetaminophen PO 0632 Oxycodone/ 2 TAB Q4P PRN 10/07 1345 AC Acetaminophen PO Pantoprazole Sodium 40 MG DAILY 10/08 1000 AC 10/09 IV 1059 Polyethylene Glycol 17 GM DAILY 10/09 1000 AC 10/09 PO 1044 Sodium Chloride 1,000 ML BOLUS ONE 10/09 1100 DC 10/09 IV 10/09 1159 1122 Laboratory Tests 10/09/16 0635: Anion Gap 9, Estimated GFR 59 L, BUN/Creatinine Ratio 30.0 H, CBC w Diff NO MAN DIFF REQ, RBC 3.15 L, MCV 80.5, MCH 26.5 L, RDW 14.9 H, MPV 8.7, Gran % 63.9, Lymphocytes % 23.7, Monocytes % 11.5 H, Eosinophils % 0.6, Basophils % 0.3, Absolute Granulocytes 5.7, Absolute Lymphocytes 2.1, Absolute Monocytes 1.0 H, Absolute Eosinophils 0, Absolute Basophils 0, PUBS MCHC 32.9 L 10/08/16 0626: Anion Gap 7, Estimated GFR > 60, BUN/Creatinine Ratio 25.0, CBC w Diff NO MAN DIFF REQ, RBC 3.29 L, MCV 79.9 L, MCH 26.6 L, RDW 14.7 H, MPV 8.5, Gran % 70.9, Lymphocytes % 15.9 L, Monocytes % 13.0 H, Eosinophils % 0, Basophils % 0.2, Absolute Granulocytes 5.8, Absolute Lymphocytes 1.3, Absolute Monocytes 1.1 H, Absolute Eosinophils 0, Absolute Basophils 0, PUBS MCHC 33.3 10/07/16 1830: Anion Gap 14, Estimated GFR > 60, BUN/Creatinine Ratio 26.3 H, Iron Pending, TIBC Pending, % Saturation Pending, Ferritin Pending, Troponin I < 0.01, CBC w Diff NO MAN DIFF REQ, RBC 3.80 L, MCV 79.8 L, MCH 26.4 L, RDW 14.4, MPV 8.5, Gran % 80.3 H, Lymphocytes % 7.7 L, Monocytes % 12.0 H, Eosinophils % 0, Basophils % 0 L, Absolute Granulocytes 8.4 H, Absolute Lymphocytes 0.8 L, Absolute Monocytes 1.2 H, Absolute Eosinophils 0, Absolute Basophils 0, PUBS MCHC 33.0
--- NOTE | 2016-10-09 14:00 | NUR ---
NURSING NOTE: PT WOKE UP FROM DEEP SLEEP PER ; ASKED TO GO TO BR, PT ASSITED TO BR, VOIDED 400ML. STATES PT WOKE UP CONFUSED, PT REORIENTED AT THIS TIME. LISA LOPEZ AWARE.
[2016-10-10 06:31] VITALS: BP 112/60
--- NOTE | 2016-10-10 07:43 | PN- Orthopedic ---
See Addendum Subjective Subjective: Patient reports less discomfort in left shoulder, surgical shoulder still with some pain but pain has been managed well. He states that he is having some left sided flank pain. He denies chest pain, shortness of breath and difficulty breathing. He denies nausea and vomitting. He has been able to void and does not report any hematuria Objective Vital Signs and I&Os Vital Signs Date Time Temp Pulse Resp B/P Pulse O2 O2 Flow FiO2 Ox Delivery Rate 10/10 630 98.3 75 20 112/60 96 10/09 2252 99.5 75 18 108/54 95 Room Air 10/09 1415 97.8 66 20 110/56 99 Room Air 10/09 1250 97.9 62 18 110/58 100 Room Air 10/09 1040 64 102/60 10/09 1035 61 84/48 10/09 0811 64 108/64 10/09 0811 62 108/60 Intake & Output 10/10 0800 10/10 0000 10/09 1600 10/09 0800 10/09 0000 10/08 1600 Intake Total 785 989 5032 150 350 850 Output Total 557 217 1764 500 350 Balance -180 420 -50 150 -150 500 Intake, IV 1000 150 Intake, Oral 120 720 550 150 350 700 Number 0 0 Bowel Movements Output, Urine 232 221 2408 500 350 Physical Exam: General: Alert and oriented x3, no acute distress Cardiac: RRR, s1s2 Pulmonary: CTA bilaterally Abdomen: Non-tender, non-distended : Left sided CVA tenderness Extremities: Moves all extremities, distal sensations intact. Motor 5/5 in bilateral hand bulk station agent. Skin warm and well perfused. Radial/ulnar pulses palpable. Bilateral calves soft and non-tender Surgical site: Right shoulder, dressing dry and intact Assessment/Plan Assessment/Plan This is a 76 year old male, POD 3, s/p reverse tsr right. pmh includes: cad and htn. Had rr with fall and dislocation of right shoulder pod 0, was close reduced in or. Had yoan on POD 2, creatinine elevated from 0.8 to 1.2. -F/U labs this am, recheck creatinine -Stat UA, assess for hematuria -Consider KUB xray vs renal ultrasound dep on flank pain and creatinine level -Will discuss with Dr Nolan, consider urology consult -OOB, nwb to right shoulder -Continue diet as tolerated -Continue pain regimen as tolerated -Continue asa bid for dvt ppx -Discharge to home pending labs/flank pain resolution Core Measures/Miscellaneous Venous Thromboembolism VTE Risk Factors: Age > 40, Surgery VTE Contraindications: No Contraindications VTE Diagnosis: No Beta Randell Is Beta Randell a Home Med? Yes If Yes, Was This Ordered Today? Yes Antibiotics Is Patient on Antibiotics? Yes If Yes: prophylaxis
--- NOTE | 2016-10-10 08:38 | PN- Orthopedic ---
Subjective Subjective: patient doing well s/p right reverse total shoulder comfortable this am ambulating in room neuro intact Objective Vital Signs and I&Os Vital Signs Date Time Temp Pulse Resp B/P Pulse O2 O2 Flow FiO2 Ox Delivery Rate 10/10 630 98.3 75 20 112/60 96 10/09 2252 99.5 75 18 108/54 95 Room Air 10/09 1415 97.8 66 20 110/56 99 Room Air 10/09 1250 97.9 62 18 110/58 100 Room Air 10/09 1040 64 102/60 10/09 1035 61 84/48 Intake & Output 10/10 1600 10/10 0800 10/10 0000 10/09 1600 10/09 0800 10/09 0000 Intake Total 480 849 7767 150 350 Output Total 962 614 4037 500 Balance -180 420 -50 150 -150 Intake, IV 1000 Intake, Oral 120 720 550 150 350 Number 0 Bowel Movements Output, Urine 285 937 3081 500 Physical Exam: patients dressing clean dry neuro intact in sling. Assessment/Plan Assessment/Plan doing well s/p right reverse shoulder ready for dc to home Core Measures/Miscellaneous Venous Thromboembolism VTE Risk Factors: Age > 40, Surgery VTE Contraindications: No Contraindications VTE Diagnosis: No Beta Randell Is Beta Randell a Home Med? Yes If Yes, Was This Ordered Today? Yes Antibiotics Is Patient on Antibiotics? Yes If Yes: prophylaxis Attending MD Review Statement Attending Statement Attending MD Statement: examined this patient
[2016-10-10 09:25] LABS: ABSOLUTE BASOPHIL COUNT 0 /CUMM (0.0-0.2); ABSOLUTE EOSINOPHIL COUNT 0.1 /CUMM (0.0-0.7); ABSOLUTE GRANULOCYTE CT 5.3 /CUMM (1.4-6.5); ABSOLUTE LYMPH COUNT 1.8 /CUMM (1.2-3.4); ABSOLUTE MONOCYTE COUNT 0.7 /CUMM (0.10-0.60); BASOPHIL % 0.3 % (0.0-2.0); EOSINOPHIL % 0.9 % (0-5); HEMATOCRIT 24.3 % (42-52); MEAN CORPUSCULAR HGB 26.6 PG (27.0-31.0); MEAN CORPUSCULAR HGB CONC 33.3 G/DL (33.0-37.0); MEAN CORPUSCULAR VOLUME 79.9 FL (80.0-94.0); MEAN PLATELET VOLUME 8.8 FL (7.4-10.4); PLATELET COUNT 221 /CUMM (130-400); RBC DISTRIBUTION WIDTH 15.1 % (11.5-14.5); RED BLOOD CELL CT 3.04 /CUMM (4.70-6.10)
[2016-10-10 09:27] VITALS: BP 100/62
== END 2016-10-10 12:10 | disposition home health service (06) | DRG 483 ==
LOC: ENRESERVDT → ENRESERVTM → 2NB 03:03 → ENPENDDIS 03:03 → SDA 03:03 → 2NB 13:35
PROVIDERS: Nurse Practitioner; Physician Assistant Surgical; ADMIT Orthopaedic Surgery Sports Medicine
DX: M19.011 Primary osteoarthritis, right shoulder (principal); E11.9 Type 2 diabetes mellitus without complications; M06.9 Rheumatoid arthritis, unspecified; I10 Essential (primary) hypertension; T84.028A Dislocation of other internal joint prosthesis, initial encounter; I25.10 Atherosclerotic heart disease of native coronary artery without angina pectoris; M10.9 Gout, unspecified; W18.30XA Fall on same level, unspecified, initial encounter; Y93.9 Activity, unspecified; Y92.231 Patient bathroom in hospital as the place of occurrence of the external cause; E78.5 Hyperlipidemia, unspecified; N40.0 Benign prostatic hyperplasia without lower urinary tract symptoms; Z85.46 Personal history of malignant neoplasm of prostate; Z96.611 Presence of right artificial shoulder joint
CPT/HCPCS: 2NBP; 84133; 84300; 36415; 72050; 73030-LT; 73030-RT; 81003; 82436; 82570; 87086; 88304; 93005; 93010; 97110-GO; 97116-GO; 97162-GP; 97165-GO; 97530-GO; J0690; J1885; J2405; J3370; J3490; J7042; J7060

== ENCOUNTER 2017-11-14 08:45 | Emergency (ER) | payer OTHER, MEDICARE ==
[~2017-11-14] VITALS: Ht 172.7 cm; Wt 64.4 kg
[~2017-11-14 08:45] MED LIST changes: +ASPIRIN81 M4 PO; +DOCUSATE SODIU100 M3 PO; +METOPROLOL TART25 M1 PO; +PERCOCET 5-3251 EACH PO
--- NOTE | 2017-11-14 09:16 | ED HAND/WRIST INJURY COMPLAINT ---
History of Present Illness General Chief Complaint: Hand or Wrist Injury Stated Complaint: L WRIST INJURY Source: patient, old records Exam Limitations: no limitations Vital Signs & Intake/Output Vital Signs & Intake/Output Vital Signs Date Time Temp Pulse Resp B/P B/P Pulse O2 O2 Flow FiO2 Mean Ox Delivery Rate 11/14 1032 97.8 67 15 127/67 99 Room Air Room Air 11/14 0850 98.2 70 18 134/72 98 Room Air Allergies Uncoded Allergies: LEAFY [place]ENS (GI UPSET 09/29/16) Reconcile Medications Aspirin (Ecotrin*) 81 MG TABLET.DR 2 TAB PO DAILY CARDIAC (Reported) Bicalutamide (Casodex) 50 MG TABLET 3 TAB PO DAILY CANCER (Reported) Folic Acid 1 MG TABLET 3 TAB PO DAILY CARDIAC (Reported) Hydrocodone/Acetaminophen (Damar 5-325 Tablet) 5 MG-325 MG TABLET 1-2 TAB PO Q4-6 PRN PRN severe pain Ibuprofen 600 MG TABLET 1 TAB PO TID pain with food Metoprolol Tartrate 25 MG TABLET 1 TAB PO BID HTN (Reported) Ramipril 10 MG CAPSULE 1 CAP PO DAILY HTN (Reported) Rosuvastatin Calcium (Crestor) 20 MG TABLET 1 TAB PO DAILY CHOLESTEROL ( Reported) Triage Note: 77 YO MALE TO TRIAGE C/O PAIN TO R HAND/WRIST SINCE YESTERDAY, STATES HE WAS USING A DRILL YESTERDAY AND IT JERKED HIS R HAND. NOTED WITH SWELLING ADN REDNESS WITH STREAKING GOING UP INNER R FOREARM. PT ABLE TO MOVE EXTREMITY. HAS BEEN ICING WITHOUT RELIEF. Triage Nurses Notes Reviewed? yes Occurred: yesterday Duration: hour(s):, constant, continues in ED Timing: recent history Injury Environment: home Severity: moderate, severe Pain/Injury Location: Right: Wrist. Context: drill kick back Method of Injury: twisted Modifying Factors: Improves With: cold therapy, immobilization, rest. Worsens With: movement. Associated Symptoms: swelling, redness, GCS 15 since, stiffness HPI: 15 hours prior to admission patient was drilling a hole in the floor and the drill kicked back twice causing his right wrist to be twisted. He complains of pain swelling limited range of motion especially at the radial aspect of his wrist with redness. He denies fever chills nausea vomiting diarrhea abdominal pain chest pain shortness breath headache dysuria bleeding. He is right-hand dominant Past History Travel History Traveled to [place] past 21 day No Medical History Any Pertinent Medical History? see below for history Cardiovascular: CAD, hypertension Renal: KIDNEY STONES Musculoskeletal: osteoarthritis Cancer(s): PROSTATE CANCER History of MRSA: No History of VRE: No History of CDIFF: No Influenza Vaccine: 06/11/16 Surgical History Surgical History: STENT TONSILITIS Psychosocial History Who do you live with Spouse What is your primary language Yi Tobacco Use: Never used Family History Hx Contributory? No Review of Systems Review of Systems Constitutional: Reports: no symptoms. EENTM: Reports: no symptoms. Respiratory: Reports: no symptoms. Cardiovascular: Reports: no symptoms. GI: Reports: no symptoms. Genitourinary: Reports: no symptoms. Musculoskeletal: Reports: see HPI, joint pain, joint swelling. Skin: Reports: no symptoms. Neurological/Psychological: Reports: no symptoms. Hematologic/Endocrine: Reports: no symptoms. Immunologic/Allergic: Reports: no symptoms. All Other Systems: Reviewed and Negative Physical Exam Physical Exam General Appearance: well developed/nourished, alert, awake, anxious, mild distress Head: atraumatic, normal appearance Eyes: Bilateral: normal appearance, PERRL, EOMI. Ears, Nose, Throat: normal pharynx, normal ENT inspection, hearing grossly normal Neck: normal inspection, supple, full range of motion Cardiovascular/Respiratory: normal breath sounds, normal peripheral pulses, regular rate/rhythm, no respiratory distress Back: normal inspection, normal range of motion Shoulder Left: normal range of motion, normal inspection Shoulder Right: normal range of motion, normal inspection Elbow Left: normal range of motion, normal inspection Elbow Right: normal range of motion, normal inspection Forearm Left: normal range of motion, normal inspection Forearm Right: normal range of motion, normal inspection Wrist Left: normal range of motion, normal inspection Wrist Right: swelling, tenderness, bone tenderness, evidence of injury, pain, soft tissue tenderness, limited range of motion Hand Left: normal inspection, normal range of motion Hand Right: normal inspection, normal range of motion Reflexes: 2+: bicep (R), bicep (L). Neurologic/Tendon: normal sensation, normal motor functions, normal tendon functions Skin: intact, normal color, warm/dry, rash (erythema over the distal radiu) Lymphatic: no anterior cervical analisa Progress Differential Diagnosis: contusion, dislocation, fracture, sprain Plan of Care: Orders Procedure Date/time Status Durable Medical Equipment 11/14 09 Active Diagnostic Imaging: Viewed by Me: Radiology Read. Discussed w/RAD: Radiology Read. Radiology Impression: 1. Right wrist: Nondisplaced intra-articular fracture of the radial styloid. 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 Moderate degenerative changes of the triscaphe and severe degenerative changes of the first CMC joints. 2. Right hand: Pfkz-re-eirthuba degenerative changes of multiple joints. No evidence of additional injury. Departure Departure Disposition: HOME OR SELF CARE Condition: Stable Clinical Impression Primary Impression: Right wrist fracture Referrals: Erika CHAMBERLAIN,Rasheed Flowers Call for orthopedic follow up Seun Capps MD (PCP/Family) Departure Forms: Customer Survey General Discharge Information Prescriptions: Current Visit Scripts Hydrocodone/Acetaminophen (Damar 5-325 Tablet) 1-2 TAB PO Q4-6 PRN PRN severe pain #15 TAB Ibuprofen 1 TAB PO TID #30 TAB with food
--- NOTE | 2017-11-14 10:22 | RADIOLOGY REPORT ---
EXAMINATION: XR WRIST, RIGHT XR HAND, RIGHT CLINICAL INFORMATION: Right wrist/hand redness/swelling. Evaluate for fracture. Patient reports an injury this morning, Drill accident. COMPARISON: None TECHNIQUE: PA, oblique, lateral, and scaphoid views of the right wrist are obtained. PA, oblique, and lateral views of the right hand are obtained. FINDINGS: RIGHT WRIST: There is osteopenia. There is an oblique intra-articular fracture through the radial styloid with no significant displacement. There is chondrocalcinosis in the radiocarpal compartment. There are moderate degenerative changes of the triscaphe joint. There are severe degenerative changes of the first CMC joint. RIGHT HAND: There is osteopenia. There is an old healed angulated fracture of the distal fifth metacarpal. There is zyhp-ay-soemxhay degenerative arthritic changes of many of the IP joints of the right hand, most prominent at the DIP joints. IMPRESSION: 1. Right wrist: Nondisplaced intra-articular fracture of the radial styloid. 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 Moderate degenerative changes of the triscaphe and severe degenerative changes of the first CMC joints. 2. Right hand: Mnpf-bg-rzhhogew degenerative changes of multiple joints. No evidence of additional injury.
[2017-11-14] MEDS ORDERED: NORCO 5-325 TA1 EACH PO (10:27)
[2017-11-14] MEDS ORDERED: IBUPROFEN600 M1 PO (10:27)
[2017-11-14 10:32] VITALS: BP 127/67
== END 2017-11-14 10:33 ==
LOC: ERH 08:45
DX: S52.511A Displaced fracture of right radial styloid process, initial encounter for closed fracture (principal); X58.XXXA Exposure to other specified factors, initial encounter; Y92.9 Unspecified place or not applicable; Y93.9 Activity, unspecified
CPT/HCPCS: 73110-RT; 73130-RT

== ENCOUNTER 2018-01-12 14:23 | Emergency (ER) | payer OTHER, MEDICARE ==
[~2018-01-12] VITALS: Ht 172.7 cm; Wt 65.8 kg
[~2018-01-12 14:23] MED LIST changes: +IBUPROFEN600 M1 PO; +NORCO 5-325 TA1 EACH PO
[2018-01-12 14:30] VITALS: BP 119/70
--- NOTE | 2018-01-12 15:07 | RADIOLOGY REPORT ---
EXAMINATION: XR SHOULDER, RIGHT CLINICAL INFORMATION: Right shoulder pain after fall COMPARISON: 10/07/2016 TECHNIQUE: Three views of the right shoulder. FINDINGS: There is a periprosthetic fracture around the proximal humeral components of the reverse total shoulder arthroplasty with apex lateral angulation at the fracture site. No additional fractures are identified. Alignment of the glenoid component appears unchanged. Ibfu-ln-obaaihac acromioclavicular cellulitis. Bones are osteopenic. IMPRESSION: Angulated proximal humeral periprosthetic fracture
--- NOTE | 2018-01-12 15:21 | ED UPPER/LOWER EXTREMITY COMPL ---
See Addendum History of Present Illness General Chief Complaint: Upper Extremity Problem Stated Complaint: R SHOULDER PAIN THATS RADIATING TO WRIST Source: patient Exam Limitations: no limitations Vital Signs & Intake/Output Vital Signs & Intake/Output Vital Signs Date Time Temp Pulse Resp B/P B/P Pulse O2 O2 Flow FiO2 Mean Ox Delivery Rate 01/12 1430 98.3 69 20 119/70 96 Room Air Allergies Uncoded Allergies: LEAFY GREENS (GI UPSET 09/29/16) Reconcile Medications Aspirin (Ecotrin*) 81 MG TABLET.DR 2 TAB PO DAILY CARDIAC (Reported) Bicalutamide (Casodex) 50 MG TABLET 3 TAB PO DAILY CANCER (Reported) Folic Acid 1 MG TABLET 3 TAB PO DAILY CARDIAC (Reported) Hydrocodone/Acetaminophen ([place] 5-325 Tablet) 5 MG-325 MG TABLET 1-2 TAB PO Q4-6 PRN PRN severe pain Ibuprofen 600 MG TABLET 1 TAB PO TID pain with food Metoprolol Tartrate 25 MG TABLET 1 TAB PO BID HTN (Reported) Ramipril 10 MG CAPSULE 1 CAP PO DAILY HTN (Reported) Rosuvastatin Calcium (Crestor) 20 MG TABLET 1 TAB PO DAILY CHOLESTEROL ( Reported) Triage Note: RIGHT SHOULDER REPLACEMENT FEW MONTHS AGO THEN FELL ON IT AND SCHEDULED TO HAVE REPLACED AGAIN. FROM SHOULDER TO WRIST NOW IT'S SWELLING WHICH IS NEW. PT HAS BEEN ICING IT BUT IT HASN'T HELPED. TAKING PAIN PILLS WITHOUT RELIEF Triage Nurses Notes Reviewed? yes Onset: Abrupt Duration: day(s): Timing: recent history Severity: moderate, severe Pain/Injury Location: Right: Shoulder. No Modifying Factors: none HPI: 77-year-old male comes into the emergency room for further evaluation of right arm pain. Patient reports that he fell 3 days ago. He has a previous right shoulder replacement. He went to see his orthopedic doctor and has a fracture around the prosthesis of the right humerus. He has had increased swelling which is why he comes into the emergency room for further evaluation today. He is due to get surgery this upcoming Wednesday. (Woody Carbajal) Past History Travel History Traveled to [place] past 21 day No Medical History Any Pertinent Medical History? see below for history Cardiovascular: CAD, hypertension Renal: KIDNEY STONES Musculoskeletal: osteoarthritis Cancer(s): PROSTATE CANCER History of MRSA: No History of VRE: No History of CDIFF: No Surgical History Surgical History: STENT TONSILITIS Psychosocial History Who do you live with Spouse What is your primary language Divehi Tobacco Use: Quit >30 days ago ETOH Use: occasional use Illicit Drug Use: denies illicit drug use Family History Hx Contributory? No (Woody Carbajal) Review of Systems Review of Systems Constitutional: Reports: no symptoms. EENTM: Reports: no symptoms. Respiratory: Reports: no symptoms. Cardiovascular: Reports: no symptoms. Gastrointestinal/Abdominal: Reports: no symptoms. Genitourinary: Reports: no symptoms. Musculoskeletal: Reports: see HPI. Skin: Reports: no symptoms. Neurological/Psychological: Reports: no symptoms. Hematologic/Endocrine: Reports: no symptoms. Immunological: Reports: no symptoms. All Other Systems: Reviewed and Negative (Woody Carbajal) Physical Exam Physical Exam General Appearance: well developed/nourished, mild distress Head: atraumatic Eyes: Bilateral: normal appearance. Ears, Nose, Throat: normal ENT inspection, hearing grossly normal Neck: normal inspection Cardiovascular/Respiratory: no respiratory distress Back: normal inspection Shoulder Right: ecchymosis, soft tissue tenderness, limited range of motion Elbow Right: joint effusion, soft tissue tenderness, limited range of motion Hand Right: Radial pulse 2+, joint effusion to right elbow, swelling to right forearm, ecchymosis, Neurologic/Tendon: normal sensation, normal motor functions, normal tendon functions, responds to pain, no evidence tendon injury, no pulse deficit Skin: intact, normal color, warm/dry (Woody Carbajal) Progress Differential Diagnosis: contusion, dislocation, DVT, fracture, sprain, tendon injury Plan of Care: 01/12/2018 3:44:51 PM Patient clinically looks well. Ultrasound is currently not here today. Patient was given a slip for an outpatient ultrasound tomorrow. I expalined to him I have a low suspicion for DVT and I feel it's more swelling from the fracture however it should be excluded. He has no pulmonary or cardiac symptoms. He will follow up tomorrow. Diagnostic Imaging: Viewed by Me: Radiology Read. Discussed w/RAD: Radiology Read. Radiology Impression: PATIENT: FORTUNATO PADILLA PRESENT AGE: 77 PATIENT ACCOUNT NO: [id number] : 38 LOCATION: [facility] [place] ORDERING PHYSICIAN: Gt LOPEZ SERVICE DATE: 01/12/181 EXAM TYPE: RAD - XRY-SHOULDER COMPLETE-RIGHT EXAMINATION: XR SHOULDER, RIGHT CLINICAL INFORMATION: Right shoulder pain after fall COMPARISON: 10/07/2016 TECHNIQUE: Three views of the right shoulder. FINDINGS: There is a periprosthetic fracture around the proximal humeral components of the reverse total shoulder arthroplasty with apex lateral angulation at the fracture site. No additional fractures are identified. Alignment of the glenoid component appears unchanged. Dweg-gj-rlupkjpm acromioclavicular cellulitis. Bones are osteopenic. IMPRESSION: Angulated proximal humeral periprosthetic fracture DICTATED BY: Joseph Santos MD DATE/TIME DICTATED:01/12/181502 RN TRAINING:TRAVON DATE/TIME TRANSCRIBED:01/12/181502 CONFIDENTIAL, DO NOT COPY WITHOUT APPROPRIATE AUTHORIZATION. <Electronically signed in Other Vendor System> SIGNED BY: Joseph Santos MD 01/12/18 [id number] (Woody Carbajal) Departure Departure Disposition: HOME OR SELF CARE Condition: Stable Clinical Impression Primary Impression: Closed fracture of right proximal humerus Referrals: Seun Capps MD (PCP/Family) Additional Instructions: Continue to take her pain medication at home. Return if any other concerns worsening symptoms. Follow up for outpatient ultrasound tomorrow. Please go over all results of today's visit with your primary care doctor. Contact your primary care doctor to let them know you were here in the emergency room. There may be nonspecific findings which may not be related to your visit today here in the emergency room but may require further evaluation and chronic monitoring by your primary care doctor. If you had a laceration today the chance of foreign body always remains. You should follow-up with your primary care doctor for recheck in 3-5 days for a wound check. If you had an x-ray done there is a chance that a fracture could have been missed on initial read and you should follow-up with your primary care doctor for repeat x-rays if symptoms persist. If your blood pressure was elevated here in the emergency room please have rechecked by medical center hospital primary care doctor within the next 48. If you were prescribed a narcotic here in the emergency room or any type of controlled substances you're not allowed to drive while taking this medication or operate any type of heavy machinery. Narcotics can make you feel lightheaded dizziness nausea and can cause constipation. You may need to poultry picking machine tender a stool softener. Thank you for choosing [facility] emergency room. Please return to the emergency room immediately if you have any other concerns worsening of symptoms. Departure Forms: Customer Survey General Discharge Information (Woody Carbajal) PA/FELT COVERER Co-Sign Statement Statement: ED Attending supervision documentation- [] I saw and evaluated the patient. I have also reviewed all the pertinent lab results and diagnostic results. I agree with the findings and the plan of care as documented in the PA's/FELT COVERER's documentation. [X] I have reviewed the ED Record and agree with the PA's/FELT COVERER's documentation. [] Additions or exceptions (if any) to the PAs/FELT COVERER's note and plan are summarized below: [] (Steven CHAMBERLAIN,Tomás Del Rio)
== END 2018-01-12 15:23 ==
LOC: ERH 14:23
DX: S42.201A Unspecified fracture of upper end of right humerus, initial encounter for closed fracture (principal); W19.XXXA Unspecified fall, initial encounter; Y92.9 Unspecified place or not applicable; Y93.9 Activity, unspecified
CPT/HCPCS: 73030-RT

== ENCOUNTER 2018-01-19 07:00 | Inpatient (IN) | payer OTHER, MEDICARE ==
[~2018-01-19] VITALS: Ht 172.7 cm; Wt 66.7 kg
[2018-02-04] MEDS ORDERED: OS-CAL 500+D31 EAC1 PO (14:20)
[2018-02-04] MEDS ORDERED: COQ-10100 MG (16:07)
[2018-02-04] MEDS ORDERED: MAGNESIUM500 M2 PO (16:07)
[2018-02-04] MEDS ORDERED: OMEGA 3-6-9 11200 MG PO (16:08)
[2018-02-04] MEDS ORDERED: LIDODERM1 EACH TOP (16:08)
[2018-02-04] MEDS ORDERED: SELENIUM200 MC1 (16:10)
[2018-02-04] MEDS ORDERED: PANTOPRAZOLE SO40 M1 PO (16:10)
[2018-02-04] MEDS ORDERED: TRAMADOL HCL50 M1 PO (16:11)
--- NOTE | 2018-02-11 09:14 | Patient Discharge Instructions ---
Discharge Instructions General Discharge Information You were seen/treated for: Periprosthetic fracture of reverse total shoulder arthroplasty. You had these procedures: Surgery Date: 02/11/18 Name of Procedure: Revision right reverse total shoulder arthroplasty with polyethylene exchange Watch for these problems: fever>101.3, increased pain, redness/swelling/drainage, dizziness, shortness of breath, chest pains No bath, but you may shower: Yes Other wound care: continue dressing to right shoulder for 2-3 days; patient may remove at home and cover incision with dry gauze. He may shower and get the incision wet after 5 days; pat dry and re-dress after bathing (no soaking in a pool or tub for 2wks). Special Instructions: NWB RUE in sling; may wear sling alone, does not need abduction pillow May work on distal motion of right arm (elbow, wrist, and hand flexion/extension ) but no active shoulder motion. NO external rotation of the right shoulder. ok to resume Xarelto POD#1 per Vascular surgery recommendations. Diet Continue normal diet: Yes Recommended Diet: Regular Activity Full Activity/No Limits: No Activity Self Limited: No Pounds, do NOT lift more than: 0 Activity Limited to: No weight bearing Other activity limits: keep arm in sling as directed Acute Coronary Syndrome Inclusion Criteria At DC or during hospital stay patient has or had the following: ACS DIAGNOSIS No Discharge Core Measures Meds if any: Prescribed or Continued at Discharge Meds if any: NOT Prescribed or Continued at Discharge Congestive Heart Failure Inclusion Criteria At DC or during hospital stay patient has or had the following: CHF DIAGNOSIS No Discharge Core Measures Meds if any: Prescribed or Continued at Discharge Meds if any: NOT Prescribed or Continued at Discharge Cerebrovascular accident Inclusion Criteria At DC or during hospital stay patient has or had the following: CVA/TIA Diagnosis No Discharge Core Measures Meds if any: Prescribed or Continued at Discharge Meds if any: NOT Prescribed or Continued at Discharge Venous thromboembolism Inclusion Criteria VTE Diagnosis No VTE Type NONE VTE Confirmed by (Test) NONE Discharge Core Measures - Per Current guidelines, there needs to be overlap - treatment for the first 5 days of Warfarin therapy. - If discharged on Warfarin prior to 5 days of - overlap therapy, the patient will need to be - assessed for post discharge needs including - *Post discharge parental anticoagulation - *Warfarin and/or parental anticoagulation education - *Follow up date to check INR post discharge At least 5 days overlap therapy as Inpatient No Meds if any: Prescribed or Continued at Discharge Note: Overlap Therapy is Warfarin and Anticoagulant Meds if any: NOT Prescribed or Continued at Discharge
--- NOTE | 2018-02-11 09:16 | Admission Core Measures ---
Acute Coronary Syndrome (CM) ACS Core Measures Acute Coronary Syndrome Diagnosis No Congestive Heart Failure (NEW) CHF Core Measures Congestive Heart Failure Diagnosis No Cerebrovascular Accident CVA Core Measures CVA/TIA Diagnosis No Venous Thromboembolism VTE Core Ebony (View Protocol) VTE Risk Factors Surgery No Mechanical VTE Prophylaxis d/t N/A MechProphylax Ordered No VTE Pharm Prophylaxis d/t NA PharmProphylax ordered Problem List As ranked by this Provider includes Assessment & Plan 1. Status post total shoulder arthroplasty 2. 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 HOME MEDS Home Med List Aspirin (Ecotrin*) 81 MG TABLET.DR 2 TAB PO DAILY CARDIAC (Reported) Bicalutamide (Casodex) 50 MG TABLET 3 TAB PO DAILY CANCER (Reported) Calcium Carbonate/Vitamin D3 (Os-Dannie 500+D3 Caplet) 500 MG-200 TABLET 1 TAB PO D SUPPLEMENT (Reported) Fish Oil/Borage/Flax/Om3,6,9#1 ([place] 3-6-9 1,200 MG Softgel) 1,200 MG CAPSULE 1 CAP PO DAILY SUPPLEMENT (Reported) Folic Acid 1 MG TABLET 3 TAB PO DAILY CARDIAC (Reported) Hydrocodone/Acetaminophen ([place] 5-325 Tablet) 5 MG-325 MG TABLET 1-2 TAB PO Q4-6 PRN PRN severe pain Lidocaine (Lidoderm) 5 % ADH..PATCH 1 PAT TOP DAILY PAIN (Reported) Magnesium Oxide (Magnesium) 500 MG CAPSULE 1 CAP PO BID SUPPLEMENT (Reported) Metoprolol Tartrate 25 MG TABLET 1 TAB PO BID HTN (Reported) Pantoprazole Sodium 40 MG TABLET.DR 1 TAB PO DAILY GI (Reported) Ramipril 10 MG CAPSULE 1 CAP PO DAILY HTN (Reported) Rosuvastatin Calcium (Crestor) 20 MG TABLET 1 TAB PO DAILY CHOLESTEROL ( Reported) Tramadol HCl 50 MG TABLET 1 TAB PO TIDPRN PAIN (Reported)
--- NOTE | 2018-02-11 09:17 | Surg Short-stay <48hrs Dis Sum ---
Visit Information Visit Dates Admission Date: 02/11/18 Discharge Date: 02/13/18 Surgical Short Stay DC Summary Admission Diagnosis: Periprosthetic fracture of reverse total shoulder arthroplasty Final Diagnosis: Periprosthetic fracture of reverse total shoulder arthroplasty; stable prosthesis Procedure(s): Surgery Date: 02/11/18 Name of Procedure: Revision right reverse total shoulder arthroplasty with polyethylene exchange Summary/Significant Findings: Electively scheduled revision right reverse total shoulder arthroplasty with polyethylene exchange 02/11/18 by , for history of periprosthetic fracture of reverse total shoulder arthroplasty. The prosthesis was found to be stable in the OR, he was placed in sling, with ice therapy continued post-operatively. He was admitted to telemetry post-operatively for continuous monitoring, due to his chronic co- morbidities. His PCP, , was consulted for co-management. Pain control transitioned from iv to oral medication as able. Condition at Discharge: stable Discharge Disposition: home or self care Discharge instructions provided to patient/family: Yes Post discharge follow-up plan: follow up with in 10 days NWB RUE in sling Pain control; recommned tylenol, tramadol Resume Xarelto POD#1 per Vascular surgery Continue dressing to right shoulder for 2-3 days; patient may remove at home and cover incision with dry gauze. He may shower and get the incision wet after 5 days; pat dry and re-dress after bathing (no soaking in a pool or tub for 2wks) Copies to: Jefry CHAMBERLAIN,Seun
--- NOTE | 2018-02-11 10:59 | Operative Report ---
Operative/Inv Procedure Report Surgery Date: 02/11/18 Name of Procedure: Revision right reverse total shoulder arthroplasty with polyethylene exchange Pre-Operative Diagnosis: Periprosthetic fracture of reverse total shoulder arthroplasty. Post-Operative Diagnosis: Periprosthetic fracture of reverse total shoulder arthroplasty; stable prosthesis Estimated Blood Loss: 100mL Surgeon/Astro Technician: Ovidio CHAMBERLAIN,Ximena Huerta MD, Lynnette Felton Anesthesia: general endotracheal tube, block IV Fluids: 1000mL Implants: [place]orn[place] 36mm +9 retentive polyethylene Urine Output: 150mL Drains: None Specimens: None Complications: None Condition: Stable Operative Indication: Chriss Goldman is a 77-year old gentlemen who underwent right reverse total shoulder arthroplasty in September 2016. His post-op course was complicated by a fall on POD#0, resulting in a dislocation of the prosthesis. He was closed reduced the same day, and progressed well over the following months in regard to shoulder motion, strength, and overall function. On January 09, 2018, he had a fall in his backyard onto the right shoulder, resulting in a periprosthetic fracture. He also developed a brachial vein DVT in the right arm and was started on Xarelto. He was evaluated by cardiology, vascular surgery, and his PCP, Dr. Capps, prior to surgery. Following medical optimization, he opted to proceed with right revision total shoulder arthroplasty. Given the patient's ongoing cardiac evaluation, his natural resources extension educator, Dr. Gama, has recommended postop evaluation on telemetry following surgery. Per discussion with Dr. Capps, he will be admitted to Dr. Capps following surgery for medical management. Operative/Procedure Note Note: Chriss Goldman arrived at [facility] on 02/11/18. He was met in the pre- operative area, where his medical history was reviewed and the operative extremity was marked. A regional block was performed by the anesthesia service. He was then taken to the OR and placed supine on the OR table. A timeout was performed in which the patient, operative extremity, and play procedure were verified. SCDs were applied to bilateral lower extremities. The patient was then induced under general anesthesia, and IV cefazolin was administered for antibiotic prophylaxis. The patient was then repositioned in a modified beachchair. Care was taken to pad all bony prominences and support the head in a neutral position. The right upper extremity was prepped and draped in the usual sterile fashion, and supported by an articulated arm radford. Following a surgical pause, an incision was made through the prior scar of his previous surgery. The deltopectoral approach was taken through skin and subcutaneous tissues down to the interval between the deltoid and pectoralis major tendon. This was carefully opened. Significant scar was encountered in this region, however it was carefully dissected to reveal the plane between the conjoined tendon in the anterior humerus. A self retraining retractor was placed. The scar overlying the anterior humerus was identified and the subscapularis tendon, which was affixed to bone, was identified and carefully dissected. The humeral prosthesis was examined. There was evidence of bony healing around the humeral stem, and palpable deformity from the patient's fracture. The stent was not noted to be loose. Fluoroscopy was brought into the room and the humerus and humeral component evaluated under live fluoroscopy. Stem was noted to be in fixed position and did not move. The humeral stem appeared to have healed in valgus, and was no longer unstable. The shoulder was easily dislocated. The humerus was again reevaluated in the dislocated position and the humeral component noted to be stable. The stem was not easily I was unable to remove the stem from its position within the humeral bone. The stem appeared to have subsided slightly due to the fracture. Given this finding, the polyethylene liner was removed from the tray. Larger thicker polyethylene trays were then trialed, with improved stability using a larger and retentive polyethylene liner. The shoulder was copiously irrigated with a pulse lavage with normal saline with bacitracin. The larger retentive polyethylene was then placed and impacted into position. Fluoroscopy was again used to verify the position of the new polyethylene, the stability of the fracture, and the range of motion of the shoulder. It was noted to be in a stable position and the fracture did not move. During motion of the arm, there was no evidence of impingement or subluxation. The wound was again copiously irrigated with normal saline with bacitracin. The subscapularis tendon was repaired to the anterior humerus using #2 Ortho cord suture. The deltopectoral interval was then closed using #2 Ortho cord interrupted sutures. The wound was then closed in layers using 0 Vicryl, 2-0 Vicryl, and a running 3- 0 Prolene stitch. The wound was reinforced with Steri-Strips and dressed with sterile gauze, ABD pad, and foam tape. The patient was placed in a sling. He was then repositioned on the operating room table and extubated. The patient was taken from the operating room to the postanesthesia care unit in stable condition. Plan for admission overnight for monitoring on telemetry.
--- NOTE | 2018-02-11 12:10 | RADIOLOGY REPORT ---
EXAMINATION: Intraoperative fluoroscopy CLINICAL INFORMATION: Right shoulder ORIF COMPARISON: Right shoulder radiographs 01/12/2018 TECHNIQUE: Intraoperative fluoroscopy was provided for use by Dr. Nolan. A total of 4 images were saved to PACS. Radiologist was not present during imaging. TOTAL FLUOROSCOPIC TIME: 1.4 minutes FINDINGS\E\IMPRESSION: Intraoperative fluoroscopy provided for use by Dr. Nolan. Please see operative note for detailed findings.
[2018-02-11 13:30] VITALS: BP 132/70
--- NOTE | 2018-02-11 13:52 | History & Physical ---
General Information and HPI MD Statement: I have seen and personally examined FORTUNATO PADILLA and documented this H&P. The patient is a 77 year old M who presented with a patient stated chief complaint of [shoulder pain]. Source of Information: patient, family Exam Limitations: no limitations History of Present Illness: Mr. Padilla is a 77 y/o gentleman with PMH significant for CAD s/p stent placement(1999), Prostate cancer s/p radiation therapy, and nephrolithiasis who was admitted for revision of his shoulder. He underwent right reverse total shoulder arthroplasty in September 2016. Patient had a fall on January 09, 2018, when he fell on the right shoulder while watering his plants resulting in a periprosthetic fracture. He denied any chest pain, palpitations,lightheadedness/ dizziness, loss of consciousness or hitting his head at the time of fall. He also developed a brachial vein DVT in the right arm and was started on Xarelto. He had Revision of the right reverse total shoulder arthroplasty done earlier today, which the patient tolerated well, but with his history of heart disease was decided to monitor him on telemetry overnight. Allergies/Medications Allergies: Coded Allergies: No Known Allergies (02/04/18) Home Med list Aspirin (Ecotrin*) 81 MG TABLET.DR 2 TAB PO DAILY CARDIAC (Reported) Bicalutamide (Casodex) 50 MG TABLET 3 TAB PO DAILY CANCER (Reported) Calcium Carbonate/Vitamin D3 (Os-Dannie 500+D3 Caplet) 500 MG-200 TABLET 1 TAB PO D SUPPLEMENT (Reported) Fish Oil/Borage/Flax/Om3,6,9#1 ([place] 3-6-9 1,200 MG Softgel) 1,200 MG CAPSULE 1 CAP PO DAILY SUPPLEMENT (Reported) Folic Acid 1 MG TABLET 3 TAB PO DAILY CARDIAC (Reported) Hydrocodone/Acetaminophen ([place] 5-325 Tablet) 5 MG-325 MG TABLET 1-2 TAB PO Q4-6 PRN PRN severe pain Lidocaine (Lidoderm) 5 % ADH..PATCH 1 PAT TOP DAILY PAIN (Reported) may wear up to 12 hours Magnesium Oxide (Magnesium) 500 MG CAPSULE 1 CAP PO BID SUPPLEMENT (Reported) Metoprolol Tartrate 25 MG TABLET 1 TAB PO BID HTN (Reported) Pantoprazole Sodium 40 MG TABLET.DR 1 TAB PO DAILY GI (Reported) Ramipril 10 MG CAPSULE 1 CAP PO DAILY HTN (Reported) Rosuvastatin Calcium (Crestor) 20 MG TABLET 1 TAB PO DAILY CHOLESTEROL ( Reported) Selenomethionine (Selenium) 200 MCG TABLET SUPPLEMENT (Reported) Tramadol HCl 50 MG TABLET 1 TAB PO TIDPRN PAIN (Reported) Ubidecarenone (Coq-10) 100 MG CAPSULE 2 CAP SUPPLEMENT (Reported) Past History Medical History Cardiovascular: CAD, hypertension Renal: KIDNEY STONES Musculoskeletal: osteoarthritis Cancer(s): PROSTATE CANCER History of MRSA: No History of VRE: No History of CDIFF: No Surgical History Surgical History: STENT TONSILITIS Past Family/Social History Psychosocial History Where do you live? Home Who Do You Live With? spouse Smoking Status: Former Smoker (quit 54 yrs ago) ETOH Use: occasional use Illicit Drug Use: denies illicit drug use Functional Ability ADLs Independent: dressing, eating, toileting, bathing. Ambulation: independent IADLs Independent: shopping, housework, finances, food prep, telephone, transportation , medication admin. Review of Systems Review of Systems Constitutional: Reports: no symptoms. EENTM: Reports: no symptoms. Cardiovascular: Reports: no symptoms. Respiratory: Reports: no symptoms. GI: Reports: no symptoms. Genitourinary: Reports: no symptoms. Musculoskeletal: Reports: joint pain. Skin: Reports: no symptoms. Neurological/Psychological: Reports: no symptoms. Hematologic/Endocrine: Reports: no symptoms. Immunologic/Allergic: Reports: no symptoms. All Other Systems: Reviewed and Negative Exam & Diagnostic Data Last 24 Hrs of Vital Signs/I&O Vital Signs Date Time Temp Pulse Resp B/P B/P Pulse O2 O2 Flow FiO2 Mean Ox Delivery Rate 02/11 1330 98.2 72 18 132/70 98 Room Air Intake & Output 02/11 1600 02/11 0800 08 0000 Intake Total 300 Output Total Balance 300 Intake, Oral 300 Patient 143 lb Weight Weight Bed scale Measurement Method Physical Exam General Appearance Alert, Oriented X3, Cooperative Skin No Rashes, No Breakdown HEENT Atraumatic, PERRLA, EOMI, Mucous Membr. moist/pink Cardiovascular Regular Rate, Normal S1, Normal S2 Lungs Normal Air Movement Abdomen Normal Bowel Sounds, Soft, No Tenderness Extremities No Clubbing, No Cyanosis Assessment/Plan Assessment: Mr. Padilla is a 77 y/o gentleman with PMH significant for CAD s/p stent placement(1999), Prostate cancer s/p radiation therapy, and nephrolithiasis who was admitted for revision of his shoulder. Problem List; 1. Right reverse total shoulder arthroplasty 2. Recent Brachial vein DVT 3. Hx of CAD s/p stents 4. Hx of prostate Ca. - Admit the patient to Telemetry floor - Right shoulder arthroplasty, managment per surgery. - Pain managment - Resume Xarelto tomorrow per surgery - Continue cardiac home medications except aspirin while on xarelto - Continue Becalutamide. DVT Prophylaxis; ALPS only, resume Xarelto in am. Patient is full code. As Ranked By This Provider Problem List: 1. Status post total shoulder arthroplasty Core Measures/Misc (03/28) Acute Coronary Syndrome ACS Diagnosis: No Congestive Heart Failure Congestive Heart Failure Diagnosis No Cerebrovascular Accident CVA/TIA Diagnosis: No VTE (View Protocol) VTE Risk Factors Surgery No Mechanical VTE Prophylaxis d/t N/A MechProphylax Ordered No VTE Pharm Prophylaxis d/t Surgical Contraindication Sepsis (View protocol) Sepsis Present: No If YES complete Sepsis Event Note If YES complete Sepsis Event Note
--- NOTE | 2018-02-11 16:55 | PN- Orthopedic ---
Subjective Subjective: No complaints. Reports right shoulder "sore". Hard of hearing is baseline. Tolerating diet. No nausea. Not yet out of bed. No dizziness. No shortness of breath. No chest pains. Due to void this evening. He reportedly ambulates with cane assistance at home. "I won't get up without help this time", he repeated several times since he had a trauma incident previously from falling after getting out of bed without assistance. Objective Vital Signs and I&Os Vital Signs Date Time Temp Pulse Resp B/P B/P Pulse O2 O2 Flow FiO2 Mean Ox Delivery Rate 02/11 133 98.2 72 18 132/70 98 Room Air Intake & Output 02/11 1600 02/11 0802/11 0000 02/10 1600 02/10 0802/10 0000 Intake Total 300 Output Total Balance 300 Intake, Oral 300 Patient 143 lb Weight Weight Bed scale Measurement Method Physical Exam: General - alert & oriented x 3. comfortable. hard of hearing is baseline. Lungs - clear bilaterally. no w/r/r. Cardiac - s1s2. reg Abdomen - soft. nontender. Extremities - warm bilaterally. right shoulder dressing c/d/i. ice pack in place. no drains. nvi. calves soft and nontender b/l. athrombics in place. Current Medications: Current Medications Sig/Trinh Start time Last Medication Dose Route Stop Time Status Admin Acetaminophen 650 MG Q4P PRN 02/11 1330 AC PO Cefazolin Sodium 2 GM IQ8 02/11 1600 AC N/A 1 UNIT IV 02/12 1629 Cefazolin Sodium 2,000 MG ONCE 02/11 0000 NR IV 02/11 2359 Dextrose/Sodium 1,000 ML Q13H 02/11 1330 AC 02/11 Chloride IV 1345 Enoxaparin Sodium 40 MG DAILY 02/12 0900 CAN SC Fentanyl Citrate 250 MCG .STK-MED ONE 02/11 07 DC IM 02/11 07 Hydromorphone HCl 2 MG .STK-MED ONE 02/11 07 DC IM 02/11 07 Midazolam HCl 2 MG .STK-MED ONE 02/11 0655 DC IM 02/11 0656 Oxycodone/ 1 TAB Q4P PRN 02/11 1330 AC Acetaminophen PO Oxycodone/ 2 TAB Q4P PRN 02/11 1330 AC Acetaminophen PO Assessment/Plan Assessment/Plan This 77 year old male with hx htn, hld, gerd, is POD#0 s/p revision right reverse total shoulder arthroplasty with polyethylene exchange, for periprosthetic fracture of reverse total shoulder arthroplasty advance diet as tolerated pain control as ordered belkis-operative ancef home meds to be ordered PT/OT arm in sling continue ice therapy f/u AM labs due to void this evening will d/w Core Measures Venous Thromboembolism VTE Risk Factors Surgery No Mechanical VTE Prophylaxis d/t N/A MechProphylax Ordered No VTE Pharm Prophylaxis d/t NA PharmProphylax ordered
--- NOTE | 2018-02-11 17:36 | PN- Att Addend ---
Attending Addendum Attending Brief Note 77-year-old white male he was admitted for revision of his shoulder. Had his procedure earlier today, did well, with his history of heart disease was decided to monitor him on telemetry overnight. So far there is no arrhythmias on the monitor. There is no chest pain no shortness of breath, his vital signs are stable. His pain is tolerable with his just getting up to go to the bathroom to urinate. Will follow orthopedics recommendations and monitor overnight Current Medications Sig/Trinh Start time Last Medication Dose Route Stop Time Status Admin Acetaminophen 650 MG Q4P PRN 02/11 1330 AC PO Atorvastatin Calcium 40 MG BID 02/11 2100 UNVr PO Bicalutamide 150 MG DAILY 02/11 1715 AC PO Cefazolin Sodium 2 GM IQ8 02/11 1600 AC N/A 1 UNIT IV 02/12 1629 Cefazolin Sodium 2,000 MG ONCE 02/11 0000 NR IV 02/11 2359 Dextrose/Sodium 1,000 ML Q13H 02/11 1330 AC 02/11 Chloride IV 1345 Enoxaparin Sodium 40 MG DAILY 02/12 0900 CAN SC Fentanyl Citrate 250 MCG .STK-MED ONE 02/11 0700 DC IM 02/11 0701 Hydromorphone HCl 2 MG .STK-MED ONE 02/11 0700 DC IM 02/11 0701 Lisinopril 10 MG DAILY 02/12 0900 AC PO Magnesium Oxide 400 MG BID 02/11 2100 AC PO Metoprolol Tartrate 25 MG BID 02/11 2100 AC PO Midazolam HCl 2 MG .STK-MED ONE 02/11 0655 DC IM 02/11 0656 Omeprazole 40 MG DAILY AC 02/11 1653 AC PO Oxycodone/ 1 TAB Q4P PRN 02/11 1330 AC Acetaminophen PO Oxycodone/ 2 TAB Q4P PRN 02/11 1330 AC Acetaminophen PO Vital Signs Date Time Temp Pulse Resp B/P B/P Pulse O2 O2 Flow FiO2 Mean Ox Delivery Rate 02/11 1330 98.2 72 18 132/70 98 Room Air Intake & Output 02/11 1600 Intake Total 300 Output Total Balance 300 Intake, Oral 300 Patient 143 lb Weight Weight Bed scale Measurement Method
[2018-02-11 22:52] VITALS: BP 106/52
[2018-02-12 07:00] VITALS: BP 86/54
[2018-02-12 08:02] LABS: ABSOLUTE BASOPHIL COUNT 0 /CUMM (0.0-0.2); ABSOLUTE EOSINOPHIL COUNT 0.1 /CUMM (0.0-0.7); ABSOLUTE GRANULOCYTE CT 4.8 /CUMM (1.4-6.5); ABSOLUTE MONOCYTE COUNT 0.7 /CUMM (0.10-0.60); BASOPHIL % 0.4 % (0.0-2.0); EOSINOPHIL % 1.4 % (0-5); GRANULOCYTE % 63.8 % (42.2-75.2); HEMATOCRIT 26.5 % (42-52); MEAN CORPUSCULAR HGB CONC 32.7 G/DL (33.0-37.0); MEAN CORPUSCULAR VOLUME 76.6 FL (80.0-94.0); MEAN PLATELET VOLUME 8.1 FL (7.4-10.4); PLATELET COUNT 331 /CUMM (130-400); RBC DISTRIBUTION WIDTH 15.7 % (11.5-14.5); RED BLOOD CELL CT 3.46 /CUMM (4.70-6.10); WHITE BLOOD CELL COUNT 7.6 /CUMM (4.8-10.8)
--- NOTE | 2018-02-12 09:24 | PN- Orthopedic ---
Surgical Brief Attending Note Brief Attending Note: Patient seen and examined this morning. He is doing well; denies pain in the shoulder but says his whole arm is sore. No issues overnight on telemetry; he denies dizziness, chest pain, or shortness of breath. He says he thinks he may be dizzy if he tries to get up and out of bed. 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 Able to make a full composite fist and flex/extend at the wrist. Unable to fully supinate the forearm, intact pronation. Unable to flex at the elbow, but able to hold in flexed position when arm positioned; notes discomfort in anterior shoulder. SILT over lateral upper arm, medial forearm, and hand. Mild decrease in sensation over lateral forearm. Hand warm and well-perfused; palpable radial pulse. 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 No issues overnight, but hypotension and bradycardia noted this morning. 1. NWB RUE in sling; may wear sling alone, does not need abduction pillow 2. Pain control; recommned tylenol, tramadol; please limit narcotics as this has contributed to increased dizziness in the past. 3. Out of bed with OT; please work on mobility, ADLs. May work on distal motion of right arm (elbow, wrist, and hand flexion/extension) but no active shoulder motion. NO external rotation of the right shoulder. 4. Resume Xarelto POD#1 per Vascular surgery recommendations. 5. Heart healthy diet 6. Monitor vitals signs; low BP this morning but fluid bolus given. Please check orthostatics prior to d/c. 7. X-ray right shoulder this morning 8. Continue dressing to right shoulder for 2-3 days; patient may remove at home and cover incision with dry gauze. He may shower and get the incision wet after 5 days; pat dry and re-dress after bathing (no soaking in a pool or tub for 2wks ). May d/c home from surgical perspective if vital signs normalize and patient is feeling well; concern for hypotension and dizziness as this has contributed to falls in the past. Patient has a follow-up appointment scheduled in 10 days in the Orthopedic office.
[2018-02-12] MEDS ORDERED: XARELTO20 M2 PO (09:51)
--- NOTE | 2018-02-12 10:06 | PN- Housestaff ---
Subjective Follow-up For: Revised total shoulder arthroplasty Complaints: no complaints Tele-Events Since Last Visit: NSR 60 - 96, SB 55 Subjective: Pt ws seen sitting in chair with son and by side. Per nusring his BP went a bit low but additional fluids were given. No acute events overnight. Pt says shoulder feels a bit uncomfortable but does not want any pain meds as he does not feel it is actual pain. Pt has no other complaints. Review of Systems Constitutional: Reports: see HPI. Objective Last 24 Hrs of Vital Signs/I&O Vital Signs Date Time Temp Pulse Resp B/P B/P Pulse O2 O2 Flow FiO2 Mean Ox Delivery Rate 02/13 0634 98.5 56 20 106/52 96 Room Air 02/13 0246 98.3 02/12 2154 100.7 75 20 110/52 96 Room Air 02/12 2117 72 110/52 02/12 1709 72 112/52 02/12 1438 99.0 68 20 114/52 98 / 1139 98.4 66 18 96/50 98 Room Air 02/12 0946 68 106/50 Intake & Output 02/13 1600 02/13 0800 02/13 0000 Intake Total 600 840 Output Total 500 Balance 100 840 Intake, IV 600 600 Intake, Oral 240 Output, Urine 500 Patient 147 lb Weight Physical Exam General Appearance: Alert, Oriented X3, Cooperative, No Acute Distress Skin Temp/Moisture Exam: Warm/Dry HEENT: Atraumatic, PERRLA, EOMI Neck: Supple Cardiovascular: Normal S1, Normal S2 Lungs: Clear to Auscultation Abdomen: Normal Bowel Sounds, Soft, No Tenderness Neurological: Normal Speech Extremities: Right shoulder with appendage covering wound. + Tenderness. Current Medications: Current Medications Sig/Trinh Start time Last Medication Dose Route Stop Time Status Admin Acetaminophen 650 MG Q4P PRN 02/11 1330 AC 02/12 PO 211 Atorvastatin Calcium 40 MG BID 02/11 2100 AC 02/12 PO 2115 Benzocaine/Menthol 1 LOUISA Q2 HRS NEEDED PRN 02/11 2015 AC 02/12 PO 1316 Bicalutamide 50 MG DAILY 02/13 09 DC PO Bicalutamide 50 MG DAILY@1700 02/12 1700 AC 02/12 PO 1742 Bicalutamide 150 MG DAILY 02/11 1715 DC 02/11 PO 1815 Cefazolin Sodium 2 GM IQ8 02/11 1600 DC 02/12 N/A 1 UNIT IV 02/12 1629 1741 Dextrose/Sodium 1,000 ML Q13H 02/11 1330 AC 02/12 Chloride IV 2116 Lisinopril 10 MG DAILY 02/12 0900 AC PO Magnesium Oxide 400 MG BID 02/11 2100 AC 02/12 PO 2116 Metoprolol Tartrate 25 MG BID 02/11 2100 AC 02/12 PO 2117 Omeprazole 40 MG DAILY AC 02/11 1653 AC 02/13 PO 0631 Oxycodone/ 1 TAB Q4P PRN 02/11 1330 AC Acetaminophen PO Oxycodone/ 2 TAB Q4P PRN 02/11 1330 AC 02/12 Acetaminophen PO 0000 Rivaroxaban 20 MG DAILY 02/12 1212 AC 02/12 PO 1314 Sodium Chloride 500 ML BOLUS ONE 02/12 0730 DC 02/12 IV 02/12 0829 0722 Assessment/Plan Assessment: Assessment/Plan: 77-year-old white male he was admitted for revision of his shoulder. Has history of heart disease so it was decided to monitor him on telemetry overnight. So far there no acute events or arrhythmias on the monitor. Pt denies, chest pain and difficulty breathing. H/H is stable. No white count. Pt was afebrile overnight. Patient only feels a bit of discomfort in shoulder but no pain. Pt was seen by Dr. Nolan. She has cleared him for discharge, most likely to go home tmrw (wednesday). Will wait for Dr. Jefry barajas. Problem List: 1. Closed fracture of right proximal humerus Pain Ratin Pain Location: Right Shoulder Pain Goal: Remain pain free Pain Plan: Patient doesn't want pain meds Tomorrow's Labs & Rationales: None
[2018-02-12 11:39] VITALS: BP 96/50
[2018-02-12 14:38] VITALS: BP 114/52
--- NOTE | 2018-02-12 15:49 | RADIOLOGY REPORT ---
EXAMINATION: XR HUMERUS, RIGHT XR SHOULDER, RIGHT CLINICAL INFORMATION: Status post right shoulder arthroplasty revision. COMPARISON: Prior right shoulder radiography 01/12/2018. TECHNIQUE: AP and lateral views of the right humerus. FINDINGS: Hardware from reverse total shoulder arthroplasties redemonstrated. There is redemonstration of a proximal right humeral fracture adjacent to the humeral hardware stent. New hardware overlies the site of the inferior aspect of the fracture. The prosthetic humeral head is well aligned with the prosthetic glenoid. No widening of the acromioclavicular joint. Decreased bone mineral density. IMPRESSION: Postsurgical changes of the right shoulder. New hardware overlies the site of the right proximal humeral periprosthetic fracture.
[2018-02-12 17:09] VITALS: BP 112/52
[2018-02-12] MEDS ORDERED: XARELTO10 M1 PO (19:01)
--- NOTE | 2018-02-12 19:53 | PN- Att Addend ---
Attending Addendum Attending Brief Note Patient comfortable in bed. Usual pain after surgery. Son at the bedside. This morning his blood pressure was low since then some IV fluids and the blood pressures a little better. Will monitor the blood pressure during the evening if his blood pressure stable in the morning with discontinue the intravenous fluids and may discharge. From the surgical point of view he is stable for discharge. Patient is febrile. No new changes on physical. His H&H is a little lower will need to monitor. 24 TOTALS 02/12 0000 02/11 0000 Intake Total 1400 Output Total Balance 1400 Intake, IV 600 Intake, Oral 800 Patient 145 lb Weight Weight Bed scale Measurement Method Current Medications Sig/Trinh Start time Last Medication Dose Route Stop Time Status Admin Acetaminophen 650 MG Q4P PRN 02/11 1330 AC PO Atorvastatin Calcium 40 MG BID 02/11 2100 AC 02/12 PO 0946 Benzocaine/Menthol 1 LOUISA Q2 HRS NEEDED PRN 02/11 2015 AC 02/12 PO 1316 Bicalutamide 50 MG DAILY 02/13 0900 DC PO Bicalutamide 50 MG DAILY@1700 02/12 1700 AC 02/12 PO 1742 Bicalutamide 150 MG DAILY 02/11 1715 DC 02/11 PO 1815 Cefazolin Sodium 2 GM IQ8 02/11 1600 DC 02/12 N/A 1 UNIT IV 02/12 1629 1741 Cefazolin Sodium 2,000 MG ONCE 02/11 0000 DC IV 02/11 2359 Dextrose/Sodium 1,000 ML Q13H 02/11 1330 AC 02/12 [place] 0632 Lisinopril 10 MG DAILY 02/12 0900 AC PO Magnesium Oxide 400 MG BID 02/11 2100 AC 02/12 PO 0946 Metoprolol Tartrate 25 MG BID 02/11 2100 AC 02/11 PO 2108 Omeprazole 40 MG DAILY AC 02/11 1653 AC 02/12 PO 0636 Oxycodone/ 1 TAB Q4P PRN 02/11 1330 AC Acetaminophen PO Oxycodone/ 2 TAB Q4P PRN 02/11 1330 AC 02/12 Acetaminophen PO 0000 Rivaroxaban 20 MG DAILY 02/12 1212 AC 02/12 PO 1314 Sodium Chloride 500 ML BOLUS ONE 02/12 0730 DC 02/12 IV 02/12 0829 0722 Laboratory Tests 02/12/18 0642: Anion Gap 6, Estimated GFR > 60, BUN/Creatinine Ratio 17.1, CBC w Diff NO MAN DIFF REQ, RBC 3.46 L, MCV 76.6 L, MCH 25.0 L, MCHC 32.7 L, RDW 15.7 H, MPV 8.1, Gran % 63.8, Lymphocytes % 25.8, Monocytes % 8.6, Eosinophils % 1.4, Basophils % 0.4, Absolute Granulocytes 4.8, Absolute Lymphocytes 2.0, Absolute Monocytes 0.7 H, Absolute Eosinophils 0.1, Absolute Basophils 0 Vital Signs Date Time Temp Pulse Resp B/P B/P Pulse O2 O2 Flow FiO2 Mean Ox Delivery Rate 02/12 1709 72 112/52 / 1438 99.0 68 20 114/52 98 / 1139 98.4 66 18 96/50 98 Room Air 02/12 0946 68 106/50 08/ 0700 97.6 55 18 86/54 95 08/ 2252 99.9 86 18 106/52 96 Room Air 02/11 2108 72 132/70
[2018-02-12 21:54] VITALS: BP 110/52
[2018-02-13 06:34] VITALS: BP 106/52
--- NOTE | 2018-02-13 06:43 | PN- Housestaff ---
Subjective Follow-up For: Revised total shoulder arthroplasty Tele-Events Since Last Visit: none Subjective: No acute events overnight. Pt has no other complaints. Review of Systems Constitutional: Reports: see HPI. Objective Last 24 Hrs of Vital Signs/I&O Vital Signs Date Time Temp Pulse Resp B/P B/P Pulse O2 O2 Flow FiO2 Mean Ox Delivery Rate 02/13 0915 70 106/52 02/13 0915 70 106/52 02/13 0634 98.5 56 20 106/52 96 Room Air 02/13 0246 98.3 Intake & Output 02/13 1600 02/13 0800 08 0000 Intake Total 600 840 Output Total 500 Balance 100 840 Intake, IV 600 600 Intake, Oral 240 Output, Urine 500 Patient 147 lb Weight Physical Exam General Appearance: Alert, Oriented X3, Cooperative, No Acute Distress Cardiovascular: Regular Rate, No Murmurs Lungs: Clear to Auscultation, Normal Air Movement Abdomen: Normal Bowel Sounds, Soft, No Tenderness, No Hepatospenomegaly, No Masses Neurological: Normal Speech, Strength at 5/5 X4 Ext, Normal Tone, Sensation Intact Extremities: No Clubbing, No Cyanosis, No Edema, Normal Pulses, No Tenderness/ Swelling Current Medications: Current Medications Sig/Trinh Start time Last Medication Dose Route Stop Time Status Admin Acetaminophen 650 MG Q4P PRN 02/11 1330 DCD 02/12 PO 2116 Atorvastatin Calcium 40 MG BID 02/11 2100 DCD 02/13 PO 0915 Benzocaine/Menthol 1 LOUISA Q2 HRS NEEDED PRN 02/11 2015 DCD 02/13 PO 0914 Bicalutamide 50 MG DAILY 02/13 09 DC PO Bicalutamide 50 MG DAILY@1700 02/12 1700 DCD 02/12 PO 1742 Dextrose/Sodium 1,000 ML Q13H 02/11 1330 DCD 02/12 Chloride IV 2116 Lisinopril 10 MG DAILY 02/12 0900 DCD 02/13 PO 0915 Magnesium Oxide 400 MG BID 02/11 2100 DCD 02/13 PO 0915 Metoprolol Tartrate 25 MG BID 02/11 2100 DCD 02/13 PO 0915 Omeprazole 40 MG DAILY AC 02/11 1653 DCD 08 PO 0631 Oxycodone/ 1 TAB Q4P PRN 02/11 1330 DCD Acetaminophen PO Oxycodone/ 2 TAB Q4P PRN 02/11 1330 DCD 02/12 Acetaminophen PO 0000 Rivaroxaban 20 MG DAILY 02/12 1212 DCD 02/13 PO 0915 Assessment/Plan Assessment: Assessment/Plan: 77-year-old white male he was admitted for revision of his shoulder. Has history of heart disease so it was decided to monitor him on telemetry overnight. So far there no acute events or arrhythmias on the monitor. Pt denies, chest pain and difficulty breathing. H/H is stable. No white count. Pt was afebrile overnight. Patient only feels a bit of discomfort in shoulder but no pain. Pt was seen by Dr. Noaln. She has cleared him for discharge, Patient got discharged this morning Problem List: 1. Closed fracture of right proximal humerus Pain Ratin Pain Location: shoulder Pain Goal: Pain 7 or less Pain Plan: tylenol Tomorrow's Labs & Rationales: none
[2018-02-13 09:15] VITALS: BP 106/52
[2018-02-13] MEDS ORDERED: XARELTO10 M1 PO (12:12)
== END 2018-02-13 13:05 | disposition home health service (06) | DRG 483 ==
LOC: SDA 02-11 02:19 → ENRESERV 02-11 10:59 → ENTRNSPT 02-11 12:53 → EDTRNSPT 02-11 12:56 → EDTRNSPTSTS 02-11 12:56 → 1NO 02-11 13:15 → CMPTRNSPT 02-11 13:19 → ENPENDDIS 02-13 11:30 → ENTRNSPT 02-13 12:43 → 1NO 02-13 13:05 → CMPTRNSPT 02-13 13:14
PROVIDERS: Internal Medicine
PROC: 0RRJ0J7 Replacement of Right Shoulder Joint with Synthetic Substitute, Glenoid Surface, Open Approach (ICD-10-PCS; principal; 2018-02-11)
PROC: 0RPJ0JZ Removal of Synthetic Substitute from Right Shoulder Joint, Open Approach (ICD-10-PCS; principal; 2018-02-11)
PROC: 3E0T3BZ Introduction of Anesthetic Agent into Peripheral Nerves and Plexi, Percutaneous Approach (ICD-10-PCS; 2018-02-11)
DX: S42.201A Unspecified fracture of upper end of right humerus, initial encounter for closed fracture (principal); M97.31XA Periprosthetic fracture around internal prosthetic right shoulder joint, initial encounter; I82.721 Chronic embolism and thrombosis of deep veins of right upper extremity; Z96.611 Presence of right artificial shoulder joint; W18.30XA Fall on same level, unspecified, initial encounter; Y92.096 Garden or yard of other non-institutional residence as the place of occurrence of the external cause; I10 Essential (primary) hypertension; E78.5 Hyperlipidemia, unspecified; M10.9 Gout, unspecified; Z85.46 Personal history of malignant neoplasm of prostate; I25.10 Atherosclerotic heart disease of native coronary artery without angina pectoris; Z95.818 Presence of other cardiac implants and grafts; Z79.01 Long term (current) use of anticoagulants
CPT/HCPCS: 1NP; 36592; 73030-RT; 73060-RT; 76000; 82436; 97116-GO; 97161-GP; 97530-GO; J0690; J3490; J7040; J7042; J9202